=== PATIENT | female | born 1935 | race Asian ===

== ENCOUNTER 2017-07-21 19:32 | Emergency (ER) | payer OTHER ==
--- NOTE | 2017-07-21 19:42 | PDOC ---
Rapid Medical Evaluation Time Seen by Provider: 07/21/17 19:38 Medical Evaluation: 07/21/17 19:40 I have performed a brief in-person evaluation of this patient. The patient presents with a chief complaint of: epigastric pain with n/v x3 since this am Pertinent physical exam findings:Epigastric pain on palp I have ordered the following:cbc/cmp,ua,amylase,lipase The patient will proceed to the ED for further evaluation:
[2017-07-21 19:45] VITALS: BP 138/70; PULSE 66; TEMP 97.9; BMI 27.3
[2017-07-21 20:11] LABS: BASOPHIL 0.5 % (0-2.0); EOSINOPHIL 0.1 % (0-4.5); MCH 29.5 pg (25.7-33.7); MCHC 33.1 g/dl (32.0-36.0); MEAN PLT VOLUME 8.9 fl (7.5-11.1); NEUTROPHILS 86.4 % (42.8-82.8); PLATELET COUNT 263 K/MM3 (134-434); RDW 13.8 % (11.6-15.6); WHITE BLOOD COUNT 13.7 K/mm3 (4.0-10.0)
[2017-07-21 20:11] LABS: URINE APPEARANCE SLCLOUDY; URINE BILIRUBIN NEGATIVE (NEGATIVE); URINE BLOOD 1+ (NEGATIVE); URINE COLOR YELLOW; URINE GLUCOSE (UA) 1+ (NEGATIVE); URINE KETONE NEGATIVE (NEGATIVE); URINE NITRITE NEGATIVE (NEGATIVE); URINE UROBILINOGEN NEGATIVE mg/dL (0.2-1.0)
[2017-07-21 20:15] LABS: URINE PROTEIN 1+ (NEGATIVE)
[2017-07-21 20:34] LABS: URINE BACTERIA RARE /hpf (NONE SEEN); URINE MUCUS RARE; URINE RBC 8 /hpf (0-3); URINE WBC 2 /hpf (3-5)
[2017-07-21] MEDS ORDERED: MAG HYDROX/AL HYDROX/SIMETH 355 ML ORAL.SUSP PO ONE (20:42)
[2017-07-21] MEDS ORDERED: FAMOTIDINE 20 MG/50 ML IVPB 20 MG in PREMIX 50 IVPB ONE (20:42)
--- NOTE | 2017-07-21 20:42 | PDOC ---
History of Present Illness - General History Source: Patient Exam Limitations: Language Barrier - History of Present Illness Initial Comments: 07/22/17 01:52 "Patient is a 81 year old female with no significant medical history who presents to the ED with epigastric pain that began this morning. The patient describes her pain as a non-radiating dull pressure, and adds that it is similar to gas pain. It is associated with two episodes of nausea and vomiting as well as belching and passing gas. She reports the episodes of vomiting to be nonbloody and nonbilious. She denies any diarrhea, bloody stool, or constipation. The patient denies fever, chill, SOB, chest pain, or back pain. pt denies any exertional worsening of sypmtoms. No known cardiac history PCP: Dr. Jesús Meehan " <Carisa Jett - Last Filed: 07/22/17 01:52> - General History Source: Patient Exam Limitations: No Limitations <Mak Ornelas - Last Filed: 07/22/17 03:20> - General Chief Complaint: Nausea/Vomiting Stated Complaint: PAIN, ACUTE Time Seen by Provider: 07/21/17 19:38 Past History <Carisa Jett - Last Filed: 07/22/17 01:52> - Past Medical History COPD: No - Surgical History Neurologic Surgery: Yes (bilat knees) - Suicide/Smoking/Psychosocial Hx Smoking History: Never smoked <Mak Ornelas - Last Filed: 07/22/17 03:20> - Past Medical History Allergies/Adverse Reactions: Allergies Allergy/AdvReac Type Severity Reaction Status Date / Time No Known Allergies Allergy Verified 07/21/17 19:42 Home Medications: Ambulatory Orders NK [No Known Home Medication] 07/21/17 Review of Systems - Review of Systems Able to Perform ROS?: Yes Comments:: 07/22/17 01:53 "CONSTITUTIONAL: No reported: Fever, Chills, Diaphoresis, Generalized Weakness, Malaise, Loss of Appetite HEENT: No reported: Rhinorrhea, Nasal Congestion, Throat Pain, Throat Swelling, Difficulty Swallowing, Mouth Swelling, Ear Pain, Eye Pain, Visual Changes CARDIOVASCULAR: No reported: Chest Pain, Syncope, Palpitations, Irregular Heart Rate, Lightheadedness, Peripheral Edema RESPIRATORY: No reported: Cough, Shortness of Breath, SOB with Exertion, Orthopnea, Wheezing , Stridor, Hemoptysis GASTROINTESTINAL: +Abdominal Pain +Nausea +Vomiting No reported: Abdominal Distension, Diarrhea, Constipation, Melena, Hematochezia GENITOURINARY: No reported: Dysuria, Frequency, Urgency, Hesitancy, Flank Pain, Genital Pain MUSCULOSKELETAL: No reported: Myalgia, Arthralgia, Joint Swelling, Back pain, Neck Pain SKIN: No reported: Rash, Itching, Pallor HEMEATOLOGIC/IMMUNOLOGIC: No reported: Easy Bleeding, Easy Bruising, Lymphadenopathy, Frequent infections ENDOCRINE: No reported: Unexplained Weight Gain, Unexplained Weight Loss, Heat Intolerance , Cold Intolerance NEUROLOGIC: No reported: Headache, Focal Weakness, Paresthesias, Vertigo, Lightheadedness, Unsteady Gait, Seizure, Mental Status Changes, Incontinence PSYCHIATRIC: No reported: Anxiety, Depression " All Other Systems: Reviewed and Negative <Carisa Jett - Last Filed: 07/22/17 01:52> *Physical Exam - Vital Signs Last Vital Signs Temp Pulse Resp BP Pulse Ox 97.9 F 66 18 138/70 97 07/21/17 19:43 07/21/17 19:43 07/21/17 19:43 07/21/17 19:43 07/21/17 19:43 - Physical Exam Comments: 07/22/17 01:53 "GENERAL: The patient is awake, alert, and fully oriented, Nontoxic - in no acute distress. HEAD: Normocephalic, atraumatic. EYES: extraocular movements intact, sclera anicteric, conjunctiva clear. ENT: Normal voice, Moist mucous membranes. NECK: Normal range of motion, supple LUNGS: Breath sounds equal, clear to auscultation bilaterally. No wheezes, no rhonchi, no rales. HEART: Regular rate and rhythm, without murmur, rub or gallop. ABDOMEN: +Mild epigastric tenderness. Soft, normoactive bowel sounds. No guarding, no rebound.No CVA tenderness EXTREMITIES: Normal range of motion, no edema. No clubbing or cyanosis. No cords , erythema, or tenderness. NEUROLOGICAL: No facial assymetry, Normal speech, PSYCH: Normal mood, normal affect. SKIN: Warm, Dry, normal turgor, " <Carisa Jett - Last Filed: 07/22/17 01:52> - Vital Signs Last Vital Signs Temp Pulse Resp BP Pulse Ox 97.9 F 66 18 138/70 97 07/21/17 19:43 07/21/17 19:43 07/21/17 19:43 07/21/17 19:43 07/21/17 19:43 <CeciMak - Last Filed: 07/22/17 03:20> Heart Score/ECG Review - ECG Impressions Comment:: 07/21/17 20:59 Twelve-lead EKG was performed and reviewed by me. There is normal sinus rhythm with a normal rate. rate of 65 no signs of GABE <Ceci,Mak - Last Filed: 07/22/17 03:20> ED Treatment Course - LABORATORY CBC & Chemistry Diagram: 07/21/17 19:50 07/21/17 19:50 - ADDITIONAL ORDERS Additional order review: Laboratory Results 07/21/17 07/21/17 07/21/17 19:55 19:50 19:50 Sodium 139 Potassium 4.1 Chloride 105 Carbon Dioxide 25 Anion Gap 9 BUN 14 Creatinine 0.8 Creat Clearance w eGFR > 60 Random Glucose 153 H Calcium 9.3 Total Bilirubin 0.5 AST 14 L ALT 27 Alkaline Phosphatase 65 Creatine Kinase 61 Troponin I < 0.02 Total Protein 8.2 Albumin 3.8 Total Amylase 46 Lipase 155 Urine Color Yellow Urine Appearance Slcloudy Urine pH 6.0 Ur Specific [place] 1.018 Urine Protein 1+ H Urine Glucose (UA) 1+ H Urine Ketones Negative Urine Blood 1+ H Urine Nitrite Negative Urine Bilirubin Negative Urine Urobilinogen Negative Ur Leukocyte Esterase Negative Urine WBC (Auto) 2 Urine RBC (Auto) 8 Ur Epithelial Cells Rare Urine Bacteria Rare Urine Mucus Rare 07/21/17 19:50 RBC 4.61 MCV 89.0 MCHC 33.1 RDW 13.8 MPV 8.9 Neutrophils % 86.4 H Lymphocytes % 9.5 Monocytes % 3.5 L Eosinophils % 0.1 Basophils % 0.5 - Medications Given in the ED: ED Medications Discontinued Medications Generic Name Dose Route Start Last Admin Trade Name Freq PRN Reason Stop Dose Admin Al Hydroxide/Mg Hydroxide 30 ml 07/21/17 20:42 07/21/17 21:12 Mylanta Suspension - PO 07/21/17 20:43 30 ml ONCE ONE Administration Famotidine/Sodium Chloride 20 50 mls @ 100 mls/hr 07/21/17 20:42 07/21/17 21: 13 mg/ Miscellaneous IVPB 07/21/17 21:11 100 mls/hr ONCE ONE Administration <Carisa Jett - Last Filed: 07/22/17 01:52> - LABORATORY CBC & Chemistry Diagram: 07/21/17 19:50 07/21/17 19:50 - ADDITIONAL ORDERS Additional order review: Laboratory Results 07/21/17 19:55 Urine Color Yellow Urine Appearance Slcloudy Urine pH 6.0 Ur Specific [place] 1.018 Urine Protein 1+ H Urine Glucose (UA) 1+ H Urine Ketones Negative Urine Blood 1+ H Urine Nitrite Negative Urine Bilirubin Negative Urine Urobilinogen Negative Urine WBC (Auto) 2 Urine RBC (Auto) 8 Ur Epithelial Cells Rare Urine Bacteria Rare Urine Mucus Rare <Mak Ornelas - Last Filed: 07/22/17 03:20> Medical Decision Making - Medical Decision Making 07/21/17 20:43 81y F no significant pmhx presents with complaint of epgiastric pressure/gas pain since today - it is constatnt, associtaed with 2 episodes of vomiting, no associated diaphoresis, sob, exertional cp. exam noted for mild epigastric tenderness, otherwise wll appearing differential includes acs, pancreaittis, gerd will giv epepcid/maalox will r/o acs with trops x 2 will reassess A portion of this note was documented by scribe services under my direction. I have reviewed the details of the note, within reason, and agree with the documentation with the following case summary and management plan written by me 07/22/17 02:10 pt feeling improved awaiting 2nd tropnin labs erviewed and are neg thus far will sign out pt to dr. scott to fu with trop if neg will hvae pt fu with dr still as outpatient. suspect symptoms secondary to indigestion/gerd 07/22/17 03:19 trop x 2 neg will dc wit hpmd fu I discussed the physical exam findings, ancillary test results and final diagnoses with the patient. I answered all of the patient's questions. The patient was satisfied with the care received and felt comfortable with the discharge plan and treatment plan. The patient will call their primary care physician within 24 hours to arrange follow-up and will return to the Emergency Department with any new, persistent or worsening symptoms. <Mak Ornelas - Last Filed: 07/22/17 03:20> *DC/Admit/Observation/Transfer - Attestations Scribe Attestion: 07/22/17 01:53 Documentation prepared by Carisa Jett, acting as medical office clerk for Mak Ornelas MD. <Carisa Jett - Last Filed: 07/22/17 01:52> - Discharge Dispostion Admit: No <Mak Ornelas - Last Filed: 07/22/17 03:20> Diagnosis at time of Disposition: Epigastric abdominal pain - Discharge Dispostion Disposition: HOME Condition at time of disposition: Improved - Referrals Referrals: Jesús Meehan MD [Primary Care Provider] - - Patient Instructions Additional Instructions: Return to the emergency department immediately with ANY new, persistent or worsening symptoms, including any pain in your chest, shortness of breath excess especially after you are ambulating or exerting yourself. I suspect that you're symptoms are due to acid reflux please take Maalox and Pepcid as needed. Please do not sleep immediately after eating You MUST call and follow up with Dr. Meehan in 3-4 days for further evaluation of your symptoms. Results were discussed with you. Please make sure your doctor reviews the results of your emergency evaluation. Print Language: POLISH - Post Discharge Activity
[2017-07-21 20:52] LABS: ALBUMIN 3.8 g/dl (3.4-5.0); ALK PHOS 65 U/L (45-117); AMYLASE 46 U/L (25-115); ANION GAP 9 (8-16); BILIRUBIN,TOTAL 0.5 mg/dL (0.2-1.0); CALCIUM 9.3 mg/dL (8.5-10.1); CO2 25 mmol/L (21-32); CREATININE 0.8 mg/dL (0.55-1.02); GLUCOSE,RANDOM 153 mg/dL (74-106); SGOT/AST 14 U/L (15-37); SGPT/ALT 27 U/L (12-78); TOT PROT 8.2 g/dl (6.4-8.2)
[2017-07-21] MEDS ORDERED: MAG HYDROX/AL HYDROX/SIMETH 30 ML UNIT-DOSE CUP ONE (20:54)
[2017-07-21] MEDS ORDERED: FAMOTIDINE 20 MG/50 ML IVPB 20 MG/50 ML MG IVPB ONE (20:54)
[2017-07-21 22:20] LABS: URINE LEUK ESTERASE Negative (NEGATIVE)
[2017-07-22] MEDS ORDERED: ONDANSETRON 4 MG/2 ML VIAL IVPB ONE (00:31)
[2017-07-22] MEDS ORDERED: ONDANSETRON 4 MG/2 ML VIAL ONE (00:38)
[2017-07-22 00:46] LABS: CPK 61 IU/L (26-192)
[2017-07-22 00:47] LABS: TROPONIN I < 0.02 ng/ml (0.00-0.05)
[2017-07-22 03:11] LABS: CPK 53 IU/L (26-192)
[2017-07-22 03:12] LABS: TROPONIN I < 0.02 ng/ml (0.00-0.05)
--- NOTE | 2017-07-24 23:05 | EKG ---
Test Reason : Blood Pressure : / mmHG Vent. Rate : 065 BPM Atrial Rate : 065 BPM P-R Int : 190 ms QRS Dur : 084 ms QT Int : 422 ms P-R-T Axes : 034 -02 066 degrees QTc Int : 438 ms NORMAL SINUS RHYTHM INFERIOR INFARCT , AGE UNDETERMINED ABNORMAL ECG NO PREVIOUS ECGS AVAILABLE Confirmed by IRMA NICKERSON MD ([id number]) on 07/24/2017 11:05:19 PM Referred By: Confirmed By:IRMA NICKERSON MD
== END 2017-07-22 03:43 | disposition home or self-care (01) ==
LOC: JER 19:32
PROC: 3E033GC Introduction of Other Therapeutic Substance into Peripheral Vein, Percutaneous Approach (ICD-10-PCS; principal; 2017-07-21)
DX: R10.13 Epigastric pain (principal)
CPT/HCPCS: 36415; 80053; 81003; 81015; 82150; 82550; 83690; 84484; 85025; 93005; 93010; 96365; 99282-25

== ENCOUNTER 2017-07-27 10:50 | Inpatient (IN) | payer OTHER ==
--- NOTE | 2017-07-27 12:14 | PDOC ---
History of Present Illness - General History Source: Patient Exam Limitations: No Limitations - History of Present Illness Initial Comments: 07/27/17 14:02 The patient is a 81 year old female, with no significant past medical history who presents to the emergency department with upper R sided abdominal pain for 2 -3 days. The patient was here 07/21/17 with c/o of epigastric pain that has since resolved. She notes having the onset of this pain about a couple days after her ER visit. She reports her pain is constant and sharp. She notes having a decrease in her appetite, and notes her pain is often worse after a meal. Last BM yesterday. Patient reports seeing yesterday who adivised she come to the ER if her symptoms persisted. She denies recent fevers, chills, headache or dizziness. She denies recent nausea, vomit, diarrhea. She denies recent dysuria, frequency, urgency or hematuria. She denies recent chest pain or shortness of breath. Allergies: NKA Past surgical history: s/p B TKR Social history: Nonsmoker. Denies EtOH use and recreational drug use. Lives with son (non belarusian speaking). Primary Care Physician: <Preston Colindres - Last Filed: 07/27/17 14:02> <Sonido Rodarte - Last Filed: 07/27/17 15:32> - General Chief Complaint: Pain Stated Complaint: RT SIDE PAIN Time Seen by Provider: 07/27/17 12:14 Past History <Preston Colindres - Last Filed: 07/27/17 14:02> - Past Medical History COPD: No Other medical history: denies - Surgical History Neurologic Surgery: Yes (bilat knees) - Suicide/Smoking/Psychosocial Hx Smoking History: Never smoked Information on smoking cessation initiated: No Hx Alcohol Use: No Drug/Substance Use Hx: No Substance Use Type: None <Sonido Rodarte - Last Filed: 07/27/17 15:32> - Past Medical History Allergies/Adverse Reactions: Allergies Allergy/AdvReac Type Severity Reaction Status Date / Time No Known Allergies Allergy Verified 07/27/17 10:58 Home Medications: Ambulatory Orders NK [No Known Home Medication] 07/21/17 Review of Systems - Review of Systems Able to Perform ROS?: Yes Comments:: 07/27/17 14:03 GENERAL/CONSTITUTIONAL: No fever or chills. No weakness. HEAD, EYES, EARS, NOSE AND THROAT: No change in vision. No ear pain or discharge. No sore throat. GASTROINTESTINAL: +R sided abdominal pain and constipation. No nausea, vomiting, diarrhea. GENITOURINARY: No dysuria, frequency, or change in urination. CARDIOVASCULAR: No chest pain or shortness of breath. RESPIRATORY: NO wheezing, cough or hemoptysis. MUSCULOSKELETAL: No joint or muscle swelling or pain. No neck or back pain. SKIN: No rash NEUROLOGIC: No headache, vertigo, loss of consciousness, or change in strength/ sensation. ENDOCRINE: No increased thirst. No abnormal weight change. HEMATOLOGIC/LYMPHATIC: No anemia, easy bleeding, or history of blood clots. ALLERGIC/IMMUNOLOGIC: No hives or skin allergy. <Preston Colindres - Last Filed: 07/27/17 14:02> *Physical Exam - Vital Signs Last Vital Signs Temp Pulse Resp BP Pulse Ox 97.7 F 82 18 153/70 98 07/27/17 10:56 07/27/17 10:56 07/27/17 10:56 07/27/17 10:56 07/27/17 10:56 - Physical Exam Comments: 07/27/17 14:03 GENERAL: Awake, alert, and fully oriented, in no acute distress HEAD: No signs of trauma EYES: PERRLA, EOMI, sclera anicteric, conjunctiva clear ENT: Auricles normal inspection, hearing grossly normal, nares patent, oropharynx clear without exudates. Moist mucosa NECK: Normal ROM, supple, no lymphadenopathy, JVD, or masses LUNGS: Breath sounds equal, clear to auscultation bilaterally. No wheezes, and no crackles HEART: Regular rate and rhythm, normal S1 and S2, no murmurs, rubs or gallops ABDOMEN: RUQ tenderness to palpation. Soft, normoactive bowel sounds. No guarding, no rebound. No masses EXTREMITIES: Normal range of motion, no edema. No clubbing or cyanosis. No cords , erythema, or tenderness BACK: No midline spinal tenderness in cervical/thoracic/lumbar region NEUROLOGICAL: Normal speech, cranial nerves intact, negative pronator drift, 5/ 5 strength in all 4 extremities, normal sensation to light touch in all 4 extremities, normal cerebellar exam, normal gait, normal reflexes and tone SKIN: Warm, Dry, normal turgor, no rashes or lesions noted. <Preston Colindres - Last Filed: 07/27/17 14:02> - Vital Signs Last Vital Signs Temp Pulse Resp BP Pulse Ox 97.7 F 82 18 153/70 98 07/27/17 10:56 07/27/17 10:56 07/27/17 10:56 07/27/17 10:56 07/27/17 10:56 <CaydenKendrickricardo - Last Filed: 07/27/17 15:32> ED Treatment Course - LABORATORY CBC & Chemistry Diagram: 07/27/17 12:38 07/27/17 12:38 - ADDITIONAL ORDERS Additional order review: Laboratory Results 07/27/17 07/27/17 12:38 12:30 Sodium 138 Potassium 5.1 D Chloride 103 Carbon Dioxide 28 Anion Gap 7 L BUN 13 Creatinine 0.8 Creat Clearance w eGFR > 60 Random Glucose 109 H D Calcium 8.7 Magnesium 2.1 Total Bilirubin 1.0 D AST 40 H D ALT 31 Alkaline Phosphatase 64 Troponin I < 0.02 Total Protein 7.5 Albumin 3.0 L D Lipase 173 Urine Color Talya Urine Appearance Slcloudy Urine pH 5.0 Ur Specific [place] 1.025 Urine Protein Negative Urine Glucose (UA) Negative Urine Ketones Negative Urine Blood 1+ H Urine Nitrite Negative Urine Bilirubin Negative Urine Urobilinogen 2.0 H Urine WBC (Auto) 6 Urine RBC (Auto) 3 Ur Epithelial Cells Few Urine Bacteria Rare Urine Mucus Many 07/27/17 12:38 RBC 4.22 MCV 88.7 MCHC 32.9 RDW 13.6 MPV 8.7 Neutrophils % 59.6 D Lymphocytes % 23.8 D Monocytes % 10.5 H D Eosinophils % 5.1 H D Basophils % 1.0 - Medications Given in the ED: ED Medications Discontinued Medications Generic Name Dose Route Start Last Admin Trade Name Freq PRN Reason Stop Dose Admin Famotidine/Sodium Chloride 20 mg in 50 mls @ 100 mls/hr 07/27/17 12:30 12:54 Pepcid 20 Mg Premixed Ivpb - IVPB 07/27/17 12:59 100 mls/hr ONCE ONE Administration Sodium Chloride 1,000 ml 07/27/17 12:30 07/27/17 13:45 Normal Saline - IV 07/27/17 12:31 1,000 ml ONCE ONE Administration <Preston Colindres - Last Filed: 07/27/17 14:02> - LABORATORY CBC & Chemistry Diagram: 07/27/17 12:38 07/27/17 12:38 <Sonido Rodarte - Last Filed: 07/27/17 15:32> Medical Decision Making - Medical Decision Making 07/27/17 15:28 81-year-old female with no significant past medical history presents with right upper quadrant pain. Blood pressure is mildly elevated to 153 systolic, otherwise vitals are unremarkable. On exam the patient has a positive Perez's sign. Ultrasound with multiple stones and trace cholecystic fluid consistent with acute cholecystitis. AST is 40 otherwise LFTs and lipase are within normal limits. has been consulted and will likely take the patient to the OR however given the patient's age she will need medical clearance. Case has been discussed with /Jhonny who will admit the patient. Case discussed in detail with admitting physician including history, physical exam and ancillary studies. Admitting physician has assumed care for the patient, will follow all pending diagnostics and will complete the evaluation and treatment. <Sonido Rodarte - Last Filed: 07/27/17 15:32> *DC/Admit/Observation/Transfer - Attestations Scribe Attestion: 07/27/17 14:03 Documentation prepared by Preston Colindres, acting as medical surgery nurse for Sonido Rodarte MD. <Preston Colindres - Last Filed: 07/27/17 14:02> - Discharge Dispostion Admit: Yes - Attestations Physician Attestion: 07/27/17 15:32 I, Dr. Sonido Rodarte MD, attest that this document has been prepared under my direction and personally reviewed by me in its entirety. I further attest, that it accurately reflects all work, treatment, procedures and medical decision -making performed by me. <Sonido Rodarte - Last Filed: 07/27/17 15:32> Diagnosis at time of Disposition: Acute cholecystitis - Discharge Dispostion Condition at time of disposition: Stable - Referrals Referrals: Jesús Meehan MD [Primary Care Provider] - - Patient Instructions - Post Discharge Activity
[2017-07-27] MEDS ORDERED: SODIUM CHLORIDE 0.9% 500 ML INFUS.BAG IV ONE (12:30)
[2017-07-27] MEDS ORDERED: FAMOTIDINE 20 MG/50 ML IVPB 20 MG/50 ML MG IVPB ONE ×2 (12:30→12:47)
[2017-07-27 12:54] LABS: EOSINOPHIL 5.1 % (0-4.5); MCH 29.2 pg (25.7-33.7); MCHC 32.9 g/dl (32.0-36.0); MEAN CELL VOLUME 88.7 fl (80-96); MEAN PLT VOLUME 8.7 fl (7.5-11.1); NEUTROPHILS 59.6 % (42.8-82.8); PLATELET COUNT 285 K/MM3 (134-434); RDW 13.6 % (11.6-15.6); WHITE BLOOD COUNT 10.3 K/mm3 (4.0-10.0)
[2017-07-27 13:00] LABS: URINE APPEARANCE SLCLOUDY; URINE BILIRUBIN NEGATIVE (NEGATIVE); URINE BLOOD 1+ (NEGATIVE); URINE COLOR AMBER; URINE GLUCOSE (UA) NEGATIVE (NEGATIVE); URINE KETONE NEGATIVE (NEGATIVE); URINE NITRITE NEGATIVE (NEGATIVE); URINE PROTEIN NEGATIVE (NEGATIVE)
[2017-07-27 13:05] LABS: ANION GAP 7 (8-16); CALCIUM 8.7 mg/dL (8.5-10.1); CO2 28 mmol/L (21-32); CREATININE 0.8 mg/dL (0.55-1.02); GLUCOSE,RANDOM 109 mg/dL (74-106); SGPT/ALT 31 U/L (12-78)
[2017-07-27 13:08] LABS: ALK PHOS 64 U/L (45-117); TOT PROT 7.5 g/dl (6.4-8.2); TROPONIN I < 0.02 ng/ml (0.00-0.05)
[2017-07-27 13:11] LABS: MAGNESIUM 2.1 mg/dL (1.8-2.4); SGOT/AST 40 U/L (15-37)
[2017-07-27 13:42] LABS: URINE BACTERIA RARE /hpf (NONE SEEN); URINE MUCUS MANY; URINE RBC 3 /hpf (0-3); URINE WBC 6 /hpf (3-5)
--- NOTE | 2017-07-27 16:17 | HP ---
CHIEF COMPLAINT: RUQ pain worse w/ food PCP: Dr. Pop HISTORY OF PRESENT ILLNESS: (pt non-czech speaking, son at bedside translating ) 81 yo woman with no significant pmh who presented to ED at behest of her PCP, Dr. Pop, due to 6 days of persistent RUQ pain worsened with PO feeding. Pt states that RUQ pain began the morning after Thanksgiving, when she noted intermittent RUQ pain w/ no radiation, worsened after eating. She took two tylenol, but was subsequently vomited up the medication, with persistent N/V afterward, leading her to come into the ED at [facility] on the evening of 07/21. This visit was notable for WBC of 13.7, normal LFTs/lipase/amylase, trops neg x2. She was sent home for presumptive indigestion/gas pain and instructed to f/ u with pcp. Over the next few days, RUQ pain persisted, continually worsened by foods and pt endorses decreased appetite/PO intake. Two days prior to admission , pain became more constant, prompting pt to visit her PCP yesterday, who urged her to come to the ED for further work-up. She denies any FLORES/dizziness, fever/ chills, cough/SOB, CP/palpitations, persistent N/V, diarrhea/constipation, dysuria or new rashes. Pt states BM have been unchanged, denying change in stool color or melena/hematochezia and endorses any further episodes of emesis or any hematemesis. She endorses mild bloating. Pt is nonpositional, nonradiating. Pt with no recent colonoscopy. Denies any travel, NSAID use. ER course was notable for: (1) WBC 10.3, Temp 97.7 (2) T bili 1.0, Alk phos 64 (3) CXR normal, RUQ notable for multiple stones, pericholecystic fluid Recent Travel: No travel PAST MEDICAL HISTORY: None PAST SURGICAL HISTORY: BL TKR Social History: Smoking: No Alcohol: No Drugs: No Family History: noncontributory Allergies No Known Allergies Allergy (Verified 07/27/17 10:58) HOME MEDICATIONS: Home Medications Medication Instructions Recorded NK [No Known Home Medication] 07/21/17 REVIEW OF SYSTEMS CONSTITUTIONAL: loss of appetite Absent: fever, chills, diaphoresis, generalized weakness, malaise, HEENT: Absent: rhinorrhea, nasal congestion, throat pain, throat swelling, difficulty swallowing CARDIOVASCULAR: Absent: chest pain, syncope, palpitations, irregular heart rate, lightheadedness , peripheral edema RESPIRATORY: Absent: cough, shortness of breath, dyspnea with exertion GASTROINTESTINAL: abdominal pain, abdominal distension, vomiting, Absent: nausea, diarrhea, constipation, melena, hematochezia GENITOURINARY: Absent: dysuria, frequency, urgency, hesitancy, hematuria, MUSCULOSKELETAL: Absent: myalgia, arthralgia, joint swelling, back pain, neck pain SKIN: Absent: rash, itching, pallor NEUROLOGIC: Absent: headache, focal weakness or paresthesias, dizziness, unsteady gait, seizure, . PHYSICAL EXAMINATION Vital Signs - 24 hr 07/27/17 10:56 Temperature 97.7 F Pulse Rate 82 Respiratory 18 Rate Blood Pressure 153/70 O2 Sat by Pulse 98 Oximetry (%) GENERAL: Awake, alert, and fully oriented, in no acute distress. Non-czech speaking HEAD: Normal with no signs of trauma. EYES: Pupils equal, round and reactive to light, extraocular movements intact, sclera anicteric, conjunctiva clear. No lid lag. EARS, NOSE, THROAT: Ears normal, nares patent, oropharynx clear without exudates. Moist mucous membranes. NECK: Normal range of motion, supple without lymphadenopathy, JVD, or masses. LUNGS: Breath sounds equal, clear to auscultation bilaterally. No wheezes, and no crackles. No accessory muscle use. HEART: Regular rate and rhythm, normal S1 and S2 without murmur, rub or gallop. ABDOMEN: Globular with increased tone. Hyperactive, low pitch bowel sounds. Tender to palpation on R side, most intense on R upper quadrant. Mild voluntary guarding with palpation. No pain on palpation of LUQ and LLQ. No splenomegaly. + Perez's. Negative for rebound tenderness. MUSCULOSKELETAL: Normal range of motion at all joints. No bony deformities or tenderness. No CVA tenderness. UPPER EXTREMITIES: 2+ pulses, warm, well-perfused. No cyanosis. No clubbing. No peripheral edema. LOWER EXTREMITIES: 2+ PT BL, 2+ DP on L side, 1+ DP on R. No calf tenderness. Trace peripheral edema, more on R side. NEUROLOGICAL: Cranial nerves II-XII intact. Normal speech. Gait not evaluated. PSYCHIATRIC: Cooperative. Good eye contact. Appropriate mood and affect. SKIN: Warm, dry, normal turgor, no rashes or lesions noted, normal capillary refill. Laboratory Results - last 24 hr CBC, BMP 07/27/17 17:45 07/27/17 17:28 07/27/17 07/27/17 07/27/17 12:30 12:38 12:38 WBC 10.3 H RBC 4.22 Hgb 12.3 Hct 37.4 MCV 88.7 MCH 29.2 MCHC 32.9 RDW 13.6 Plt Count 285 MPV 8.7 Neutrophils % 59.6 D Lymphocytes % 23.8 D Monocytes % 10.5 H D Eosinophils % 5.1 H D Basophils % 1.0 Sodium 138 Potassium 5.1 D Chloride 103 Carbon Dioxide 28 Anion Gap 7 L BUN 13 Creatinine 0.8 Creat Clearance w eGFR > 60 Random Glucose 109 H D Calcium 8.7 Magnesium 2.1 Total Bilirubin 1.0 D AST 40 H D ALT 31 Alkaline Phosphatase 64 Troponin I < 0.02 Total Protein 7.5 Albumin 3.0 L D Lipase 173 Urine Color Talya Urine Appearance Slcloudy Urine pH 5.0 Ur Specific [place] 1.025 Urine Protein Negative Urine Glucose (UA) Negative Urine Ketones Negative Urine Blood 1+ H Urine Nitrite Negative Urine Bilirubin Negative Urine Urobilinogen 2.0 H Urine WBC (Auto) 6 Urine RBC (Auto) 3 Ur Epithelial Cells Few Urine Bacteria Rare Urine Mucus Many Pending urine cx CXR 07/27 - No acute pathology RUQ U/S 07/27 - Fatty liver versus hepatocellular Multiple gallstones with a trace of pericholecystic free fluid. Trans Router reported positive Perez's sign. Correlate clinically to determine further evaluation and to rule out acute cholecystitis. Unremarkable examination ASSESSMENT/PLAN: 81 year old woman with no significant pmh presenting with persistent colicky RUQ pain, worsened by food, now found with U/S confirmed gallstones and findings consistent with cholecystitis. #Acute cholecystitis/biliary colic - US w/ multiple gallstones, sonographic perez's, pericholecystic fluid. - NPO - Surgery consulted - Morphine 2mg IV q4h prn for pain control - Type and screen, coags - Rocephin 1g IV daily, flagyl 500 q8h for cholecystitis coverage - AM CBC, BMP. Trend LFTs - Trend WBC, fever curve - Pt low clinical risk for lap cholecystectomy (intermediate risk), with no cardio-pulmonary comorbidities such as CHF, structural heart dz, arrhythmias, pulmonary dz, known valvular dz. Pt independent in all ADLs with no noted exercise intolerant inconsistent with her age. #LE Edema (r/o dvt) - asymmetric LE edema on R leg, decrease DP pulse - f/u LE duplex #Hyperglycemia - elevated BS 153 on prior admission - f/u A1c #PPX - SubQ Heparin. Hold at midnight - Famotidine IV BID FEN Fluids: 2d5NS 83 cc/hr Electrolytes: Borderline hypoK. Repeat BMP in AM Nutrition: NPO Full Code Dispo: Admit to Med-surg for further management and possible lap cholecystectomy. Plan discussed with attending, Dr. oJdy Augustin, PGY1 Visit type - Emergency Visit Emergency Visit: Yes ED Registration Date: 07/27/17 Care time: The patient presented to the Emergency Department on the above date and was hospitalized for further evaluation of their emergent condition. - New Patient This patient is new to me today: Yes Date on this admission: 07/27/17 - Critical Care Critical Care patient: No
[2017-07-27 16:34] LABS: INR 1.12 (0.82-1.09); PROTHROMBIN TIME (PATIENT) 12.6 SEC (9.98-11.88)
[2017-07-27 16:38] LABS: ACTIVATED PTT 29.4 SECONDS (26.9-34.4)
--- NOTE | 2017-07-27 16:46 | HP ---
Admitting History and Physical - Primary Care Physician PCP: Jesús Meehan - Admission Chief Complaint: RUQ abdominal pain History of Present Illness: Patient is an 81 year old female with no PMHx who was brought in by her son for abdominal pain that initially started a day after Thanksgiving. Patients son reports patient was in her normal state of health when all of a sudden she started having non-radiating and dull RUQ abdominal pain. Patient reports the pain was initially intermittent occurring after she eats heavy food, which made her change her diet to more soft food. Then in the last two days patient reports having constant RUQ abdominal associate with bloating and anorexia, which prompted this hospital visit. Patient's son reports she came here 6 days ago for abdominal pain but was discharged after resolution of symptoms. Patient reports taking Tylenol for the pain but with minimal symptomatic relief. Patient's son denies any history of colonoscopy. Denies any chronic NSAID use. Patient otherwise denies fever, chills, chest pain, palpitations, shortness of breath, loss of consciousness, headaches, constipation, dysuria, hematuria, bloody stools. History Source: Patient, Family Member Limitations to Obtaining History: Language Barrier - Past Surgical History Past Surgical History: Yes: Joint Replacement (Right and Left Knee replacement ( 2015 and 2016)) - Smoking History Smoking history: Never smoked Have you smoked in the past 12 months: No - Alcohol/Substance Use Hx Alcohol Use: No History of Substance Use: reports: None - Social History Usual Living Arrangement: Yes: With Child History of Recent Travel: No Home Medications - Allergies Allergies/Adverse Reactions: Allergies Allergy/AdvReac Type Severity Reaction Status Date / Time No Known Allergies Allergy Verified 07/27/17 10:58 - Home Medications Home Medications: Ambulatory Orders NK [No Known Home Medication] 07/21/17 Physical Examination Vital Signs: Vital Signs Temperature 97.7 F 07/27/17 10:56 Pulse Rate 82 07/27/17 10:56 Respiratory Rate 18 07/27/17 10:56 Blood Pressure 153/70 07/27/17 10:56 O2 Sat by Pulse Oximetry (%) 98 07/27/17 10:56 Constitutional: Yes: Well Nourished, No Distress, Calm Eyes: Yes: WNL, Conjunctiva Clear, EOM Intact, PERRL. No: Ptosis, Sclera Icterus, Tearing HENT: Yes: WNL, Atraumatic, Normocephalic, Other (Dry mucous membranes). No: Nasal Congestion, Pharyngeal Erythema, Rhinnorhea Cardiovascular: Yes: WNL, Regular Rate and Rhythm Respiratory: Yes: WNL, Regular, CTA Bilaterally. No: Accessory Muscle Use, Cough, Diminished, Dullness, Rales, Rhonchi, Wheezes Gastrointestinal: Yes: Soft, Hyperactive Bowel Sounds, Tenderness (upon palpation of RUQ), Other (distended, (+) perez's sign) Musculoskeletal: Yes: WNL. No: Back Pain, Joint Stiffness Extremities: Yes: Other (Incision scars of bilateral knees Tenderness upon palpation of right anterior browne (-) Opal's sign No erythema or warmth or calf tenderness) Edema: Yes Edema: RLE: Trace Peripheral Pulses WNL: No Peripheral Pulses: Left Doralis Pedis: 2+, Right Dorsalis Pedis: 1+, Left Femoral: 2+, Right Femoral: 2+ Integumentary: Yes: WNL. No: Bruising, Erythema, Petechiae, Rash Neurological: Yes: WNL, Alert, Oriented, Cran Nerves II-XII Intact. No: Aphasia , Confusion, Dysarthria, Facial Droop, Lethargy, Numbness, Paresthesia, Seizure , Tingling, Tremors, Unresponsive ...Motor Strength: WNL Psychiatric: Yes: WNL, Alert, Oriented Labs: CBC, BMP 07/27/17 12:38 07/27/17 12:38 Imaging - Results Chest X-ray: Report Reviewed, Image Reviewed (No acute pathology.) Ultrasound: Report Reviewed, Image Reviewed ((+) Sonographic perez's sign. Multiple Gallstones with a trace of pericholecystic free fluid) Assessment/Plan Patient is an 81 year old female who presents with RUQ abdominal pain and Ultrasound of the Gallbladder revealed Cholelithiasis with Pericholecystic free fluid. Patient admitted for further monitoring and management. Acute Cholecystitis VS. Biliary Colic -U/S revealed (+) Perez's sign with Pericholecystic free fluid but NO wall thickening >4mm. Patient meets 2/3 acute cholecystitis diagnostic criteria. -Patient has slightly elevated AST of 40 from 6 days ago, which was 14. U/S revealed no dilatation of the bile ducts. Will repeat CMP. -Will begin antibiotics with Ceftriaxone and Metronidazole for gallbladder penetration -Surgery consult placed and will evaluate for possible procedure tomorrow -NPO for possible procedure tomorrow -IV 1/2NS with D5 @83mls/hr -Morphine 2mg IVP Q4H PRN -Type and screen, PT/PTT ordered -A1C -Risk Stratification:This patient has a low clinical risk for perisurgical cardiac event for this intermediate risk procedure. Patient has no history of arrythmias, dyspnea, syncope. Right Lower Extremity Edema -Trace pitting edema with minor tenderness upon palpation of anterior browne. -Duplex to rule out DVT F/E/N -IV 1/2NS with D5 @83mls/hr -Electrolyes wnl -NPO Prophylaxis -Moderate risk. Heparin 5000 units SQ for DVT -No GI required Disposition -Full code -Will likely have laprascopic procedure tomorrow. Will remain inpatient Full H&P to follow. Discussed case with Attending, Dr. Vera. Sobeida Deshpande MD- PGY2 Visit type - Emergency Visit Emergency Visit: Yes ED Registration Date: 07/27/17 Care time: The patient presented to the Emergency Department on the above date and was hospitalized for further evaluation of their emergent condition. - New Patient This patient is new to me today: Yes Date on this admission: 07/27/17 - Critical Care Critical Care patient: No
[2017-07-27 17:39] LABS: URINE LEUK ESTERASE Negative (NEGATIVE)
[2017-07-27 17:55] LABS: BASOPHIL 0.8 % (0-2.0); EOSINOPHIL 5.5 % (0-4.5); MCH 29.8 pg (25.7-33.7); MCHC 33.8 g/dl (32.0-36.0); MEAN CELL VOLUME 88.2 fl (80-96); MEAN PLT VOLUME 8.7 fl (7.5-11.1); NEUTROPHILS 55.5 % (42.8-82.8); PLATELET COUNT 277 K/MM3 (134-434); RDW 13.5 % (11.6-15.6); WHITE BLOOD COUNT 9.7 K/mm3 (4.0-10.0)
[2017-07-27] MEDS ORDERED: morphine SULFATE 4 MG/ML VIAL IVPUSH PRN (17:57)
[2017-07-27 17:58] LABS: ALBUMIN 3.1 g/dl (3.4-5.0); ALK PHOS 66 U/L (45-117); ANION GAP 8 (8-16); BILIRUBIN,TOTAL 0.7 mg/dL (0.2-1.0); CALCIUM 8.3 mg/dL (8.5-10.1); CO2 27 mmol/L (21-32); CREATININE 0.7 mg/dL (0.55-1.02); GLUCOSE,RANDOM 91 mg/dL (74-106); SGOT/AST 19 U/L (15-37); SGPT/ALT 29 U/L (12-78)
[2017-07-27] MEDS ORDERED: CEFTRIAXONE 1 GM in DEXTROSE 5%-WATER - 50 ML IVPB SCH (18:00)
[2017-07-27] MEDS ORDERED: FAMOTIDINE IV 20 MG/12 ML VIAL IVPUSH SCH (18:15)
[2017-07-27] MEDS ORDERED: DEXTROSE 5%-0.45% SALINE 1,000 ML IV SCH (18:15)
[2017-07-27] MEDS ORDERED: SODIUM CHLORIDE 1,000 ML IV SCH (18:15)
--- NOTE | 2017-07-27 18:26 | CONSULT ---
Consult Consult Specialty:: General Surgery Referred by:: Sonido Rodarte Reason for Consultation:: possible cholecystitis - History of Present Illness Chief Complaint: RUQ pain, n/v, anorexia History of Present Illness: Pt seen and examined in ER. Phone tassel snipper for Erica used #[phone] after son assisted with some translation at bedside. 81yo [place] F with no sig PMH s/p cataract surgery and bilateral knee replacements within last 2 years, began having RUQ pain just after Thanksgiving , associated with n/v x a few episodes Monday morning, anorexia with little po intake since then, and almost none in last couple days, no diarrhea or constipation, last normal/soft BM was yesterday morning, no fever/chills, no recent illness, no previous similar pain. Per medical note, pt has never had colonoscopy. She was seen in ER several days ago for abdominal pain, but discharged when pain resolved with antacid and fluids. WBC then was 13.7. Today she is afebrile, wbc initially 10.7 repeated at 9, LFTs and lipase normal though initial AST was 40 (slightly hemolyzed). She takes occasional Tylenol or ibuprofen for pain as needed, but Tylenol did not help this pain. Her son indicates that the pain was worse with "heavy/hard food" like spicy [place] dishes, but better with "soft food" like bread. She has almost been afraid to eat much because of the pain. She saw her PMD Dr. Meehan yesterday, who advised her to go to ER if pain persisted or got worse. She came today. Tolerated CT oral contrast in ER, but did not have CT. She is admitted to hospitalist. Surgery is consulted for possible need for cholecystectomy. - History Source History Provided By: Patient, Family Member (son at bedside), Medical Record Limitations to Obtaining History: Language Barrier (Erica, telephone tassel snipper #[phone]) - Past Medical History Reproductive: Yes: Postmenopausal ...: No Musculoskeletal: Yes: Osteoarthritis - Past Surgical History Past Surgical History: Yes: Cataract Removal (bilateral, years ago), Joint Replacement (Right and Left Knee replacement (02/2016 and 12/2014)). No: Colonoscopy - Alcohol/Substance Use Hx Alcohol Use: No History of Substance Use: reports: None - Smoking History Smoking history: Never smoked Have you smoked in the past 12 months: No - Social History Usual Living Arrangement: With Child History of Recent Travel: No Home Medications - Allergies Allergies/Adverse Reactions: Allergies Allergy/AdvReac Type Severity Reaction Status Date / Time No Known Allergies Allergy Verified 07/27/17 10:58 - Home Medications Home Medications: Ambulatory Orders NK [No Known Home Medication] 07/21/17 Family Disease History - Family Disease History Family History: Unremarkable Review of Systems - Review of Systems Constitutional: reports: Loss of Appetite. denies: Chills, Fever Eyes: denies: Blurred Vision, Recent Change in Vision HENT: denies: Difficult Swallowing, Hearing Loss, Nasal Congestion, Throat Pain Neck: denies: Swollen Glands, Tenderness Cardiovascular: denies: Chest Pain, Palpitations Respiratory: denies: Cough, SOB Gastrointestinal: reports: Abdominal Pain (with hpi), Nausea (with hpi, Monday only), Vomiting (with hpi, Monday only). denies: Constipation, Diarrhea Genitourinary: denies: Burning, Dysuria Musculoskeletal: denies: Back Pain, Joint Pain, Muscle Pain Integumentary: denies: Change in Color, Rash Neurological: denies: Dizziness, Headache, Unsteady Gait Psychiatric: denies: Anxiety, Depression Physical Exam Vital Signs: Vital Signs Temperature 97.7 F 07/27/17 10:56 Pulse Rate 76 07/27/17 17:38 Respiratory Rate 18 07/27/17 17:38 Blood Pressure 132/84 07/27/17 17:38 O2 Sat by Pulse Oximetry (%) 98 07/27/17 17:38 Constitutional: Yes: Well Nourished, No Distress, Calm Eyes: Yes: Conjunctiva Clear, EOM Intact. No: Sclera Icterus HENT: Yes: Atraumatic, Normocephalic Neck: Yes: Supple, Trachea Midline Cardiovascular: Yes: Regular Rate and Rhythm. No: Murmur Respiratory: Yes: Regular, CTA Bilaterally Gastrointestinal: Yes: Normal Bowel Sounds, Soft, Abdomen, Obese (protuberant), Distention (mild), Tenderness (RUQ without rebound or guarding). No: Tenderness , Epigastrium, Tenderness, Rebound ...Rectal Exam: Yes: Deferred Renal/: No: CVA Tenderness - Left, CVA Tenderness - Right Musculoskeletal: No: Back Pain (no direct tenderness), Joint Stiffness, Joint Swelling Extremities: Yes: Other (bilateral knee scars). No: Cool, Cyanosis Edema: No Peripheral Pulses WNL: Yes Integumentary: No: Jaundice, Rash Neurological: Yes: Alert, Oriented Psychiatric: Yes: Alert, Oriented Labs: CBC, BMP 07/27/17 17:45 07/27/17 17:28 CMP Sodium 137 mmol/L (136-145) 07/27/17 17:28 Potassium 3.6 mmol/L (3.5-5.1) D 07/27/17 17:28 Chloride 102 mmol/L (98-107) 07/27/17 17:28 Carbon Dioxide 27 mmol/L (21-32) 07/27/17 17:28 Anion Gap 8 (8-16) 07/27/17 17:28 BUN 12 mg/dL (7-18) 07/27/17 17:28 Creatinine 0.7 mg/dL (0.55-1.02) 07/27/17 17:28 Creat Clearance w eGFR > 60 (>60) 07/27/17 17:28 Random Glucose 91 mg/dL (74-106) 07/27/17 17:28 Calcium 8.3 mg/dL (8.5-10.1) L 07/27/17 17:28 Magnesium 2.1 mg/dL (1.8-2.4) 07/27/17 12:38 Total Bilirubin 0.7 mg/dL (0.2-1.0) D 07/27/17 17:28 AST 19 U/L (15-37) D 07/27/17 17:28 ALT 29 U/L (12-78) 07/27/17 17:28 Alkaline Phosphatase 66 U/L (45-117) 07/27/17 17:28 Troponin I < 0.02 ng/ml (0.00-0.05) 07/27/17 12:38 Total Protein 7.0 g/dl (6.4-8.2) 07/27/17 17:28 Albumin 3.1 g/dl (3.4-5.0) L 07/27/17 17:28 Lipase 173 U/L (73-393) 07/27/17 12:38 Abnormal Lab Results 07/27/17 07/27/17 07/27/17 12:30 12:38 12:38 WBC 10.3 H Monocytes % 10.5 H D Eosinophils % 5.1 H D PT with INR Anion Gap 7 L Random Glucose 109 H D Calcium AST 40 H D Albumin 3.0 L D Urine Blood 1+ H Urine Urobilinogen 2.0 H 07/27/17 07/27/17 07/27/17 16:05 17:28 17:45 WBC Monocytes % 10.6 H Eosinophils % 5.5 H PT with INR 12.60 H Anion Gap Random Glucose Calcium 8.3 L AST Albumin 3.1 L Urine Blood Urine Urobilinogen Urine Test Results Urine Color Talya 07/27/17 12:30 Urine Appearance Slcloudy 07/27/17 12:30 Urine pH 5.0 (5.0-8.0) 07/27/17 12:30 Ur Specific [place] 1.025 (1.001-1.035) 07/27/17 12:30 Urine Protein Negative (NEGATIVE) 07/27/17 12:30 Urine Glucose (UA) Negative (NEGATIVE) 07/27/17 12:30 Urine Ketones Negative (NEGATIVE) 07/27/17 12:30 Urine Blood 1+ (NEGATIVE) H 07/27/17 12:30 Urine Nitrite Negative (NEGATIVE) 07/27/17 12:30 Urine Bilirubin Negative (NEGATIVE) 07/27/17 12:30 Ur Leukocyte Esterase Negative (NEGATIVE) 07/27/17 12:30 Ur Epithelial Cells Few /HPF (FEW) 07/27/17 12:30 Urine Bacteria Rare /hpf (NONE SEEN) 07/27/17 12:30 Urine Mucus Many 07/27/17 12:30 Imaging - Results Chest X-ray: Report Reviewed Ultrasound: Report Reviewed (multiple gallstones without thickened wall, gb ~ 10cm, trace pericholecystic fluid, no cbd dilation, + Perez's), Image Reviewed EKG: Report Reviewed, Image Reviewed Problem List - Problems (1) Calculus of gallbladder with acute and chronic cholecystitis without obstruction Assessment/Plan: Admitted to hospitalist NPO/IVF trend labs - repeats ok but with clinical symptoms and ultrasound findings, will treat as acute on chronic cholecystitis IV antibiotics DVT prophylaxis plan alternating tylenol/ibuprofen prn for pain postop, narcotic for breakthrough only Discussed with patient via phone tassel snipper risks, benefits and alternatives of laparoscopic possible open cholecystectomy, including but not limited to bleeding, infection, injury to adjacent structures, bile duct leak or injury, intraabdominal abscess, need for further procedures; alternatives include antibiotics, delayed or no surgery - risks of this include recurrence of biliary colic, cholecystitis, cholangitis, pancreatitis. Patient desires to proceed with operation - will take to OR tomorrow for above. Informed consent signed for same. Code(s): K80.12 - CALCULUS OF GB W ACUTE AND CHRONIC CHOLECYST W/O OBSTRUCTION (2) Osteoarthritis of both knees Code(s): M17.0 - BILATERAL PRIMARY OSTEOARTHRITIS OF KNEE Qualifiers: Osteoarthritis type: primary Qualified Code(s): M17.0 - Bilateral primary osteoarthritis of knee
--- NOTE | 2017-07-27 18:33 | PN ---
Teaching Attending Note Name of Resident: Torey Augustin ATTENDING PHYSICIAN STATEMENT I saw and evaluated the patient. I reviewed the resident's note and discussed the case with the resident. I agree with the resident's findings and plan as documented. SUBJECTIVE: CC: RUQ abd pain HPI: 81 y/o lady with h/o TKA who presented with abd pain x 5 days . after thanksgiving dinner she developed RUQ abd pain. it was intermittent in first 2- 3 days, then became constant. denies N/V. no diarrhea . no fever . she presented to ER on 07/22 and her sx improved on tylenol then was d/c home . she reports poor po intake . now she is in ER. her sx are better , no abd pain but she had pain when resident examined her US of abd showed gall stones with pericystic fluid OBJECTIVE: NAD, Awake , alert and oriented HEENT: mildly dry MM. No LAP in neck. round equal pupils , reactive to light , EOMI. no facial droop. CV: RRR. no MRG Lungs: CTAB Abd: soft, ND, NL BS . TTP in RUQ with positive Perez's , liver is not palpated or percussed . no rebound tenderness or guarding . Ext: no erythema. Circumference of R leg ? slightly > L . with tenderness on R browne. ASSESSMENT AND PLAN: 81 y/o lady with h/o TKA who presented with abd pain x 5 days. 1- ABd pain. clinically and with US results this indicates Acute cholecystitis. - d/w her and her son the need for surgery , but now pt is hesitant. risk of worsening infection/ sepsis and even was explained . - Start IV abx . ceftriaxon and flagyl - Start IVF - NPO . - morphine for pain. - Pre-OP risk stratification: this is an intermediate risk non emergent procedure. the pateitn her self has no signs or sx of arrhythmias, decompensated heart failure, CP or ACS. she has no h/o POP or eertional cp. she has no h/o CAD , CHF, or any cardiac problems . 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 in conclusion she is at low risk for ursula -surgical cardiac events for this intermediate risk procedure. No cardiac work up is indicated at this time. But will get US of LE to R/o DVT as she has tenderness in R leg. if there is DT then she will need IVC filter before going for surgery . 2- DVT PX . heparin. hold after MN HLOC
[2017-07-27] MEDS ORDERED: DEXTROSE 5%-0.45% SALINE 990 ML with POTASSIUM CHLORIDE 20 MEQ IVPB SCH (19:00)
[2017-07-27] MEDS ORDERED: METRONIDAZOLE 500 MG PREMIXED 500 MG/100 ML MG IVPB ONE (19:20)
[2017-07-27] MEDS ORDERED: CEFTRIAXONE 1 GM/50 ML BAG ONE (19:20)
[2017-07-27] MEDS: METRONIDAZOLE 500 MG PREMIXED 500 MG/100 ML MG IVPB SCH (21:34)
[2017-07-27] MEDS: HEPARIN NA (PORCINE) 5,000 UNITS/ML 1ML VIAL SQ SCH (21:41)
[2017-07-28 00:16] VITALS: BMI 27.1
[2017-07-28] MEDS: FAMOTIDINE IV 20 MG/12 ML VIAL IVPUSH SCH ×3 (00:46→22:47)
[2017-07-28] MEDS: METRONIDAZOLE 500 MG PREMIXED 500 MG/100 ML MG IVPB SCH ×2 (01:32→10:32)
[2017-07-28] MEDS: HEPARIN NA (PORCINE) 5,000 UNITS/ML 1ML VIAL SQ SCH ×3 (01:34→22:47)
[2017-07-28 08:07] LABS: BASOPHIL 0.9 % (0-2.0); EOSINOPHIL 5.8 % (0-4.5); MCH 29.5 pg (25.7-33.7); MCHC 33.5 g/dl (32.0-36.0); MEAN CELL VOLUME 87.9 fl (80-96); MEAN PLT VOLUME 8.5 fl (7.5-11.1); NEUTROPHILS 63.2 % (42.8-82.8); PLATELET COUNT 264 K/MM3 (134-434); WHITE BLOOD COUNT 9.3 K/mm3 (4.0-10.0)
[2017-07-28] MEDS ORDERED: CEFTRIAXONE 1 G/50 ML PREMIX 50 ML IVPB SCH (08:12)
[2017-07-28 08:21] LABS: ALBUMIN 2.7 g/dl (3.4-5.0); ANION GAP 6 (8-16); CALCIUM 7.6 mg/dL (8.5-10.1); CO2 26 mmol/L (21-32); GLUCOSE,RANDOM 131 mg/dL (74-106)
[2017-07-28 08:24] LABS: ALK PHOS 56 U/L (45-117); BILIRUBIN,TOTAL 0.5 mg/dL (0.2-1.0); CREATININE 0.6 mg/dL (0.55-1.02); PHOSPHOROUS 2.3 mg/dL (2.5-4.9); SGOT/AST 15 U/L (15-37); SGPT/ALT 25 U/L (12-78); TOT PROT 6.1 g/dl (6.4-8.2)
--- NOTE | 2017-07-28 08:50 | PN ---
Physical Exam: SUBJECTIVE: Patient seen and examined by me this AM - Spoke to pt. Nursing able to translate in [place]. Pt endorses improved RUQ pain. NPO. - 3x episodes of diarrhea overnight. No hematochezia, melena. No fevers/chills, SOB/cough, FLORES/dizziness, N/V, abdominal pain, dysuria, neuro symptoms - Spoke with Dr. Renteria of surgical team. Cleared for surgery medically. Plan for surgery in afternoon today. Will follow-up with post-op plan and coordinate with surgical team. OBJECTIVE: Vital Signs Intake & Output 07/25/17 07/26/17 07/27/17 07/28/17 23:59 23:59 23:59 23:59 Intake Total 840 Balance 840 Weight 69.354 kg Period Temp Pulse Resp BP Sys/Venegas Pulse Ox Last 24 Hr 97.7 F-98.3 F 72-82 18-20 132-153/63-84 97-98 GENERAL: Awake, alert, and fully oriented, in no acute distress. Non-burkinan speaking. In good spirits. HEAD: Normal with no signs of trauma. EYES: Pupils equal, round and reactive to light, extraocular movements intact, sclera anicteric, conjunctiva clear. No lid lag. EARS, NOSE, THROAT: Ears normal, nares patent, oropharynx clear without exudates. Moist mucous membranes. NECK: Normal range of motion, supple without lymphadenopathy, JVD, or masses. LUNGS: Breath sounds equal, clear to auscultation bilaterally. No wheezes, and no crackles. No accessory muscle use. HEART: Regular rate and rhythm, normal S1 and S2 without murmur, rub or gallop. ABDOMEN: Globular, soft. Hypoactive bowel sounds. Focally tender to palpation on RUQ, much improved from yesterday. No pain on palpation of LUQ and LLQ. No splenomegaly. + Perez's. Negative for rebound tenderness. Negative fluid wave MUSCULOSKELETAL: Normal range of motion at all joints. No bony deformities or tenderness. No CVA tenderness. UPPER EXTREMITIES: 2+ pulses, warm, well-perfused. No cyanosis. No clubbing. No peripheral edema. LOWER EXTREMITIES: 2+ PT BL, 2+ DP on L side, 1+ DP on R. No calf tenderness. 1 + peripheral edema BL. NEUROLOGICAL: Cranial nerves II-XII intact. Normal speech. Gait not evaluated. PSYCHIATRIC: Cooperative. Good eye contact. Appropriate mood and affect. SKIN: Warm, dry, normal turgor, no rashes or lesions noted, normal capillary refill. Laboratory Results - last 24 hr CBC, BMP 07/28/17 06:30 07/28/17 06:30 07/27/17 07/27/17 07/27/17 12:30 12:38 12:38 WBC 10.3 H RBC 4.22 Hgb 12.3 Hct 37.4 MCV 88.7 MCH 29.2 MCHC 32.9 RDW 13.6 Plt Count 285 MPV 8.7 Neutrophils % 59.6 D Lymphocytes % 23.8 D Monocytes % 10.5 H D Eosinophils % 5.1 H D Basophils % 1.0 PT with INR INR PTT (Actin FS) Sodium 138 Potassium 5.1 D Chloride 103 Carbon Dioxide 28 Anion Gap 7 L BUN 13 Creatinine 0.8 Creat Clearance w eGFR > 60 POC Glucometer Random Glucose 109 H D Hemoglobin A1c % Calcium 8.7 Phosphorus Magnesium 2.1 Total Bilirubin 1.0 D AST 40 H D ALT 31 Alkaline Phosphatase 64 Troponin I < 0.02 Total Protein 7.5 Albumin 3.0 L D Lipase 173 Urine Color Talya Urine Appearance Slcloudy Urine pH 5.0 Ur Specific Earle 1.025 Urine Protein Negative Urine Glucose (UA) Negative Urine Ketones Negative Urine Blood 1+ H Urine Nitrite Negative Urine Bilirubin Negative Urine Urobilinogen 2.0 H Ur Leukocyte Esterase Negative Urine WBC (Auto) 6 Urine RBC (Auto) 3 Ur Epithelial Cells Few Urine Bacteria Rare Urine Mucus Many Blood Type Antibody Screen 07/27/17 07/27/17 07/27/17 16:00 16:05 17:28 WBC RBC Hgb Hct MCV MCH MCHC RDW Plt Count MPV Neutrophils % Lymphocytes % Monocytes % Eosinophils % Basophils % PT with INR 12.60 H INR 1.12 PTT (Actin FS) 29.4 Sodium 137 Potassium 3.6 D Chloride 102 Carbon Dioxide 27 Anion Gap 8 BUN 12 Creatinine 0.7 Creat Clearance w eGFR > 60 POC Glucometer Random Glucose 91 Hemoglobin A1c % Calcium 8.3 L Phosphorus Magnesium Total Bilirubin 0.7 D AST 19 D ALT 29 Alkaline Phosphatase 66 Troponin I Total Protein 7.0 Albumin 3.1 L Lipase Urine Color Urine Appearance Urine pH Ur Specific Earle Urine Protein Urine Glucose (UA) Urine Ketones Urine Blood Urine Nitrite Urine Bilirubin Urine Urobilinogen Ur Leukocyte Esterase Urine WBC (Auto) Urine RBC (Auto) Ur Epithelial Cells Urine Bacteria Urine Mucus Blood Type AB POSITIVE Antibody Screen Negative 07/27/17 07/27/17 07/28/17 17:45 17:53 06:22 WBC 9.7 RBC 4.08 Hgb 12.2 Hct 36.0 MCV 88.2 MCH 29.8 MCHC 33.8 RDW 13.5 Plt Count 277 MPV 8.7 Neutrophils % 55.5 Lymphocytes % 27.6 Monocytes % 10.6 H Eosinophils % 5.5 H Basophils % 0.8 PT with INR INR PTT (Actin FS) Sodium Potassium Chloride Carbon Dioxide Anion Gap BUN Creatinine Creat Clearance w eGFR POC Glucometer 134 Random Glucose Hemoglobin A1c % 7.3 H Calcium Phosphorus Magnesium Total Bilirubin AST ALT Alkaline Phosphatase Troponin I Total Protein Albumin Lipase Urine Color Urine Appearance Urine pH Ur Specific Earle Urine Protein Urine Glucose (UA) Urine Ketones Urine Blood Urine Nitrite Urine Bilirubin Urine Urobilinogen Ur Leukocyte Esterase Urine WBC (Auto) Urine RBC (Auto) Ur Epithelial Cells Urine Bacteria Urine Mucus Blood Type Antibody Screen 07/28/17 07/28/17 07/28/17 06:30 06:30 06:30 WBC 9.3 RBC 3.85 Hgb 11.3 Hct 33.9 MCV 87.9 MCH 29.5 MCHC 33.5 RDW 13.0 Plt Count 264 MPV 8.5 Neutrophils % 63.2 Lymphocytes % 20.7 D Monocytes % 9.4 Eosinophils % 5.8 H Basophils % 0.9 PT with INR INR PTT (Actin FS) Sodium 137 Potassium 3.7 Chloride 105 Carbon Dioxide 26 Anion Gap 6 L BUN 8 D Creatinine 0.6 Creat Clearance w eGFR > 60 POC Glucometer Random Glucose 131 H D Hemoglobin A1c % Calcium 7.6 L Phosphorus 2.3 L Magnesium 2.0 Total Bilirubin 0.5 D AST 15 D ALT 25 Alkaline Phosphatase 56 Troponin I Total Protein 6.1 L Albumin 2.7 L Lipase 168 Urine Color Urine Appearance Urine pH Ur Specific Earle Urine Protein Urine Glucose (UA) Urine Ketones Urine Blood Urine Nitrite Urine Bilirubin Urine Urobilinogen Ur Leukocyte Esterase Urine WBC (Auto) Urine RBC (Auto) Ur Epithelial Cells Urine Bacteria Urine Mucus Blood Type Antibody Screen Active Medications Generic Name Dose Route Start Last Admin Trade Name Freq PRN Reason Stop Dose Admin Heparin Sodium (Porcine) 5,000 unit 07/27/17 18:00 07/28/17 01:34 Heparin - SQ Not Given Q8H-IV FREDRICK Metronidazole 500 mg in 100 mls @ 100 mls/hr 07/27/17 18:00 07/28/17 01:32 Flagyl 500mg Premixed Ivpb - IVPB 100 mls/hr Q8H-IV FREDRICK Administration Famotidine 20 mg in 12 mls @ 144 mls/hr 07/27/17 19:01 07/28/17 00:46 Pepcid 20 Mg/12 Ml Push IVPUSH 144 mls/hr BID FREDRICK Administration Potassium Chloride 20 meq/ 1,000 mls @ 83 mls/hr 07/27/17 19:00 07/27/17 21: 47 Dextrose/Sodium Chloride IVPB 83 mls/hr ASDIR FREDRICK Administration CEFTRIAXONE 1 G/50 ML PREMIX 50 mls @ 100 mls/hr 07/28/17 08:12 Ceftriaxone 1 Gm-D5w Bag IVPB DAILY FREDRICK Morphine Sulfate 2 mg 07/27/17 17:57 Morphine Sulfate IVPUSH Q4H PRN PAIN Pending urine cx R LE duplex 07/27 - No DVT CXR 07/27 - No acute pathology RUQ U/S 07/27 - Fatty liver versus hepatocellular Multiple gallstones with a trace of pericholecystic free fluid. Bar Machine Operator reported positive Perez's sign. Correlate clinically to determine further evaluation and to rule out acute cholecystitis. Unremarkable examination ASSESSMENT/PLAN: 81 year old woman with no significant pmh presenting with persistent colicky RUQ pain, worsened by food, now found with U/S confirmed gallstones and findings consistent with cholecystitis. Going for lap cholecystectomy today. #Acute cholecystitis/biliary colic - US w/ multiple gallstones, sonographic perez's, pericholecystic fluid. - NPO this AM - Cleared for likely surgery in PM today. F/u with surgical team for post-op care. - Morphine 2mg IV q4h prn for pain control - Rocephin 1g IV daily, flagyl 500 q8h for pre-op coverage. Plan for 1x dose of unasyn post-op. - No WBC this AM 9.3 - Trend WBC, fever curve - Pt low clinical risk for lap cholecystectomy (intermediate risk), with no cardio-pulmonary comorbidities such as CHF, structural heart dz, arrhythmias, pulmonary dz, known valvular dz. Pt independent in all ADLs with no noted exercise intolerant inconsistent with her age. #LE Edema (r/o dvt) - asymmetric LE edema on R leg, decrease DP pulse - No DVT on R LE #Hyperglycemia - elevated BS 131 this am, elevated on admission - A1C 7.3 - Started on Januvia 100mg daily - Will counselor aide pt and son about obesity, diabetes management #PPX - SubQ Heparin after surgery. Currently being held - Famotidine IV BID FEN Fluids: 12d5NS 83 cc/hr Electrolytes: Daily BMPs, borderline hypoK 7.3 Nutrition: NPO Full Code Dispo: Med-surg for pre- post-op management after lap cholecystectomy. Plan discussed with attending, Dr. Jody Augustin, PGY1 Visit type - Emergency Visit Emergency Visit: Yes ED Registration Date: 07/27/17 Care time: The patient presented to the Emergency Department on the above date and was hospitalized for further evaluation of their emergent condition. - New Patient This patient is new to me today: No - Critical Care Critical Care patient: No
[2017-07-28] MEDS ORDERED: PT OWN MED DRAWER 7, Y5N ONE (10:07)
--- NOTE | 2017-07-28 10:07 | EKG ---
Test Reason : Blood Pressure : / mmHG Vent. Rate : 071 BPM Atrial Rate : 071 BPM P-R Int : 188 ms QRS Dur : 080 ms QT Int : 404 ms P-R-T Axes : 048 -02 064 degrees QTc Int : 439 ms NORMAL SINUS RHYTHM POSSIBLE INFERIOR INFARCT (CITED ON OR BEFORE 21-JUL-2017) ABNORMAL ECG WHEN COMPARED WITH ECG OF 21-JUL-2017 19:45, NO SIGNIFICANT CHANGE WAS FOUND Confirmed by GENNY BARRIOS MD ([id number]) on 07/28/2017 10:07:10 AM Referred By: Confirmed By:GENNY BARRIOS MD
--- NOTE | 2017-07-28 11:05 | PN ---
Progress Note, Physician Chief Complaint: RUQ pain History of Present Illness: Pt with no pain at this time. Feeling better. No overnight events. On Ceftriaxone and Flagyl. Son expressed some hesitancy about proceeding with surgery. Spoke with pt's granddaughter over phone and assured her that pt's risk despite her age is overall as low as it will be, given that she also had knee surgery twice in last two years and did well. Gallstones will not go away with medication, but colic could be managed with diet. Still, pain could recur, and stones could lead to ductal obstruction, cholangitis or pancreatitis in the future, which could be more severe. She spoke again with patient's son, who also spoke with patient again, and they do wish to proceed with operation today. - Current Medication List Current Medications: Active Medications Heparin Sodium (Porcine) (Heparin -) 5,000 unit SQ Q8H-IV [facility] Last Admin: 07/28/17 09:56 Dose: Not Given Metronidazole (Flagyl 500mg Premixed Ivpb -) 500 mg in 100 mls @ 100 mls/hr IVPB Q8H-IV [facility] Last Admin: 07/28/17 10:32 Dose: 100 mls/hr Famotidine (Pepcid 20 Mg/12 Ml Push) 20 mg in 12 mls @ 144 mls/hr IVPUSH BID [facility] Last Admin: 07/28/17 10:32 Dose: 144 mls/hr Potassium Chloride 20 meq/ (Dextrose/Sodium Chloride) 1,000 mls @ 83 mls/hr IVPB ASDIR [facility] Last Admin: 07/27/17 21:47 Dose: 83 mls/hr CEFTRIAXONE 1 G/50 ML PREMIX (Ceftriaxone 1 Gm-D5w Bag) 50 mls @ 100 mls/hr IVPB DAILY [facility] Last Admin: 07/28/17 09:55 Dose: 100 mls/hr Morphine Sulfate (Morphine Sulfate) 2 mg IVPUSH Q4H PRN PRN Reason: PAIN - Objective Vital Signs: Vital Signs Temperature 97.6 F 07/28/17 09:00 Pulse Rate 78 07/28/17 09:00 Respiratory Rate 18 07/28/17 09:00 Blood Pressure 118/80 07/28/17 09:00 O2 Sat by Pulse Oximetry (%) 97 07/27/17 22:35 Constitutional: Yes: Well Nourished, No Distress, Calm Eyes: Yes: Conjunctiva Clear, EOM Intact. No: Sclera Icterus Cardiovascular: Yes: Regular Rate and Rhythm. No: Murmur Respiratory: Yes: Regular, CTA Bilaterally Gastrointestinal: Yes: Normal Bowel Sounds, Soft, Abdomen, Obese (protuberant), Tenderness (mild RUQ without rebound or guarding). No: Tenderness, Epigastrium Musculoskeletal: No: Joint Stiffness, Joint Swelling Extremities: No: Cool, Cyanosis Integumentary: No: Jaundice, Rash Neurological: Yes: Alert, Oriented Psychiatric: Yes: Alert, Oriented Labs: CBC, BMP 07/28/17 06:30 07/28/17 06:30 INR, PTT INR 1.12 (0.82-1.09) 07/27/17 16:05 CMP Sodium 137 mmol/L (136-145) 07/28/17 06:30 Potassium 3.7 mmol/L (3.5-5.1) 07/28/17 06:30 Chloride 105 mmol/L (98-107) 07/28/17 06:30 Carbon Dioxide 26 mmol/L (21-32) 07/28/17 06:30 Anion Gap 6 (8-16) L 07/28/17 06:30 BUN 8 mg/dL (7-18) D 07/28/17 06:30 Creatinine 0.6 mg/dL (0.55-1.02) 07/28/17 06:30 Creat Clearance w eGFR > 60 (>60) 07/28/17 06:30 POC Glucometer 134 UNITS (80-120) 07/28/17 06:22 Random Glucose 131 mg/dL (74-106) H D 07/28/17 06:30 Hemoglobin A1c % 7.3 % (4.8-6.0) H 07/27/17 17:53 Calcium 7.6 mg/dL (8.5-10.1) L 07/28/17 06:30 Phosphorus 2.3 mg/dL (2.5-4.9) L 07/28/17 06:30 Magnesium 2.0 mg/dL (1.8-2.4) 07/28/17 06:30 Total Bilirubin 0.5 mg/dL (0.2-1.0) D 07/28/17 06:30 AST 15 U/L (15-37) D 07/28/17 06:30 ALT 25 U/L (12-78) 07/28/17 06:30 Alkaline Phosphatase 56 U/L (45-117) 07/28/17 06:30 Troponin I < 0.02 ng/ml (0.00-0.05) 07/27/17 12:38 Total Protein 6.1 g/dl (6.4-8.2) L 07/28/17 06:30 Albumin 2.7 g/dl (3.4-5.0) L 07/28/17 06:30 Lipase 168 U/L (73-393) 07/28/17 06:30 - ....Imaging Ultrasound: Report Reviewed (no evidence of DVT in right leg) EKG: Report Reviewed Problem List - Problems (1) Calculus of gallbladder with acute and chronic cholecystitis without obstruction Assessment/Plan: NPO/IVF until after surgery IV antibiotics through 1-2 doses postop GI/DVT prophylaxis plan alternating tylenol/ibuprofen prn for pain postop, narcotic for breakthrough only lap constantin today plan to resume po postop Code(s): K80.12 - CALCULUS OF GB W ACUTE AND CHRONIC CHOLECYST W/O OBSTRUCTION (2) Osteoarthritis of both knees Code(s): M17.0 - BILATERAL PRIMARY OSTEOARTHRITIS OF KNEE Qualifiers: Osteoarthritis type: primary Qualified Code(s): M17.0 - Bilateral primary osteoarthritis of knee
[2017-07-28] MEDS ORDERED: D5-1/2NS+20 MEQ KCL - 20 MEQ/1,000 ML INFUS.BAG IV SCH (13:00)
[2017-07-28] MEDS ORDERED: sitaGLIPtin PHOSPHATE 100 MG TABLET (FP) PO SCH (16:30)
[2017-07-28] MEDS ORDERED: FLU VACCINE QUAD 60 MCG/0.5 ML (MDV 17-18) IM ONE (17:00)
[2017-07-28] MEDS ORDERED: PNEUMOC 13-VAL CONJ-DIP CRM/PF 0.5 ML DISP.SYRIN IM ONE (17:00)
[2017-07-28] MEDS ORDERED: CEFOXITIN SODIUM 1 GM IVPB ONE (18:20)
[2017-07-28] MEDS ORDERED: ROCURONIUM BROMIDE 50 MG/5 ML VIAL ONE (18:22)
[2017-07-28] MEDS ORDERED: PROPOFOL 20 ML ONE (18:22)
[2017-07-28] MEDS ORDERED: cefOXitin SODIUM 1 GM VIAL (RESTRICTED TO ID) IVPB ONE (18:30)
--- NOTE | 2017-07-28 18:30 | PN ---
Teaching Attending Note Name of Resident: Torey Augustin ATTENDING PHYSICIAN STATEMENT I saw and evaluated the patient. I reviewed the resident's note and discussed the case with the resident. I agree with the resident's findings and plan as documented. SUBJECTIVE: No fever or chills. has no abd pain. denies N/V OBJECTIVE: NAD, Awake , alert and oriented HEENT: MMM CV: RRR. no MRG Lungs: CTAB Abd: soft, ND, NL BS . TTP in RUQ with positive Perez's , liver is not palpated or percussed . no rebound tenderness or guarding . Ext: no erythema. Circumference of R leg ? slightly > L . with tenderness on R browne. ASSESSMENT AND PLAN: 81 y/o lady with h/o TKA who presented with abd pain x 5 days. 1- Acute cholecystitis : - for CCY today - d/w Myra Gibbons, will nened unasyn x 2 after surgery - start celars after sx - pain cotrol after sx - N O DVT 2- Newly diagnosed DM: with A1c 7.1 sugar is not elevated here but she is NPO - will not start any regimen here - will offer a diet trail as otupt - dietitian consult - will prescribe glucometer at dc DVT PX Possible dc tomorrow
[2017-07-28] MEDS ORDERED: DEXAMETHASONE SOD PHOSPHATE 4 MG/1 ML VIAL ONE (18:52)
[2017-07-28] MEDS ORDERED: ONDANSETRON 4 MG/2 ML VIAL IVPUSH PRN ×2 (20:12→21:57)
[2017-07-28] MEDS ORDERED: BUPIVACAINE HCL/PF 0.5% (5MG/ML) 10 ML VIAL IJ ONE ×2 (20:36)
[2017-07-28] MEDS ORDERED: NEOSTIGMINE METHYLSULFATE 0.5 MG/ML - 10 ML MDV ONE (20:37)
[2017-07-28] MEDS ORDERED: PHENYLEPHRINE HCL 10 MG/1 ML SINGLE DOSE VIAL ONE (20:37)
[2017-07-28] MEDS ORDERED: GLYCOPYRROLATE 0.2 MG/1 ML VIAL ONE (20:38)
[2017-07-28] MEDS ORDERED: HYDROmorphone HCL CARPU-JECT 2 MG/1 ML DISP.SYRIN ONE (20:58)
[2017-07-28] MEDS ORDERED: AMPICILLIN NA/SULBACTAM NA 1.5 GM in SODIUM CHLORIDE 100 ML IVPB SCH (21:00)
[2017-07-28] MEDS: HYDROmorphone HCL CARPU-JECT 1 MG/1 ML DISP.SYRIN IVPUSH PRN ×4 (21:00→21:20)
[2017-07-28] MEDS ORDERED: ACETAMINOPHEN 325 MG TABLET (FP) PO PRN ×2 (21:35→21:57)
[2017-07-28] MEDS ORDERED: IBUPROFEN 600 MG TABLET (FP) PO PRN ×2 (21:36→21:57)
[2017-07-28] MEDS ORDERED: oxyCODONE HCL 5 MG TABLET PO PRN ×2 (21:36→21:57)
[2017-07-28] MEDS ORDERED: morphine SULFATE 4 MG/ML VIAL IVPUSH PRN ×2 (21:38→21:57)
--- NOTE | 2017-07-28 21:53 | OP ---
Operative Note - Note: Operative Date: 07/28/17 Pre-Operative Diagnosis: acute and chronic cholecystitis Operation: laparoscopic cholecystectomy Findings: chronically inflamed gallbladder, decompressed of 40ml+ of bile, with adherent omentum overlying; critical view identified; some bile spillage irrigated and suctioned, gb entered toward dome with several yellow stones spilled and retrieved; uppermost portion of back wall adherent to liver and left behind, mucosa cauterized thoroughly Post-Operative Diagnosis: Same as Pre-op Surgeon: Altaf Renteria Mercerizer Machine Operator: Kevyn Millan Anesthesiologist/ASSISTANT HEAD CASHIER: Tino Hunter Anesthesia: General, Local (20ml 0.5% marcaine) Specimens Removed: gallbladder to pathology Estimated Blood Loss (mls): 25 Fluid Volume Replaced (mls): 800 (crystalloid) Operative Report Dictated: Yes
[2017-07-28] MEDS ORDERED: LACTATED RINGERS SOLUTION 1,000 ML/1,000 ML INFUS.BAG IV SCH (22:00)
[2017-07-29] MEDS ORDERED: cefOXitin SODIUM 2 GM VIAL (RESTRICTED TO ID) IVPB ONE (00:30)
[2017-07-29] MEDS ORDERED: CEFOXITIN SODIUM 1 GM PUSH 1 GM/10 ML DISP.SYRIN IVPUSH ONE (00:30)
[2017-07-29] MEDS: HEPARIN NA (PORCINE) 5,000 UNITS/ML 1ML VIAL SQ SCH (06:18)
[2017-07-29 07:37] LABS: MCH 29.2 pg (25.7-33.7); MCHC 32.6 g/dl (32.0-36.0); MEAN CELL VOLUME 89.7 fl (80-96); MEAN PLT VOLUME 8.7 fl (7.5-11.1); PLATELET COUNT 285 K/MM3 (134-434); RDW 13.3 % (11.6-15.6); WHITE BLOOD COUNT 13.4 K/mm3 (4.0-10.0)
[2017-07-29 07:46] LABS: ALBUMIN 2.7 g/dl (3.4-5.0); ANION GAP 6 (8-16); CALCIUM 8.1 mg/dL (8.5-10.1); CO2 27 mmol/L (21-32); CREATININE 0.8 mg/dL (0.55-1.02); GLUCOSE,RANDOM 140 mg/dL (74-106); SGOT/AST 63 U/L (15-37); SGPT/ALT 42 U/L (12-78)
[2017-07-29 07:48] LABS: ALK PHOS 59 U/L (45-117); BILIRUBIN,TOTAL 0.6 mg/dL (0.2-1.0); TOT PROT 6.6 g/dl (6.4-8.2)
--- NOTE | 2017-07-29 09:08 | PN ---
Progress Note (short form) - Note Progress Note: Anesthesia Post op Pt seen and examined S:awake and alert O: Vital Signs Temperature 97.4 F L 07/29/17 06:00 Pulse Rate 62 07/29/17 06:00 Respiratory Rate 16 07/29/17 06:00 Blood Pressure 133/61 07/29/17 06:00 O2 Sat by Pulse Oximetry (%) 97 07/28/17 22:35 CBC, BMP 07/29/17 06:00 07/29/17 06:00 A/P:s/p isael killian Doing well post op Continue current care Bo Gonzales MD
[2017-07-29] MEDS ORDERED: PT OWN MED DRAWER 7, Y5N ONE (09:14)
[2017-07-29] MEDS: FAMOTIDINE IV 20 MG/12 ML VIAL IVPUSH SCH (09:17)
--- NOTE | 2017-07-29 09:34 | PN ---
Physical Exam: SUBJECTIVE: Patient seen and examined by this AM - Grandson at bedside, able to translate. Counseled about post-op plan, need to lose weight and new diagnosis of diabetes, along with dietary modifications and new meds - no major overnight events. No complaints. Good appetite. 1 BM, no blood, color changes overnight. - Denies fever/chills, sob, cough, n/v, abdominal pain, rashes, samaniego/ lightheadness. - Going home today OBJECTIVE: Vital Signs Intake & Output 07/26/17 07/27/17 07/28/17 07/29/17 23:59 23:59 23:59 23:59 Intake Total 2802 1200 Output Total 25 Balance 2777 1200 Weight 69.354 kg Period Temp Pulse Resp BP Sys/Venegas Pulse Ox Last 24 Hr 97.3 F-98.7 F 62-90 14-22 98-164/57-76 94-100 GENERAL: Awake, alert, and fully oriented, in NAD HEAD: Normal with no signs of trauma. EYES: Pupils equal, round and reactive to light, extraocular movements intact, sclera anicteric, conjunctiva clear. No lid lag. EARS, NOSE, THROAT: Ears normal, nares patent, oropharynx clear without exudates. Moist mucous membranes. LUNGS: Breath sounds equal, clear to auscultation bilaterally. No wheezes, and no crackles. No accessory muscle use. HEART: Regular rate and rhythm, normal S1 and S2 without murmur, rub or gallop. ABDOMEN: Surgical bandages noted on 4 sites on abdomen, no erythema or drainage. Globular, soft. + bowel sounds. No pain on palpation in all 4 quads. No splenomegaly. Negative for rebound tenderness. MUSCULOSKELETAL: Normal range of motion at all joints. No bony deformities or tenderness. No CVA tenderness. UPPER EXTREMITIES: 2+ pulses, warm, well-perfused. No cyanosis. No clubbing. No peripheral edema. LOWER EXTREMITIES: 2+ PT BL, 2+ DP on L side, 1+ DP on R. No calf tenderness. 1 + peripheral edema BL. NEUROLOGICAL: Cranial nerves II-XII intact. Normal speech. Gait not evaluated. PSYCHIATRIC: Cooperative. Good eye contact. Appropriate mood and affect. Laboratory Results - last 24 hr CBC, BMP 07/29/17 06:00 07/29/17 06:00 1207/28/17 07/29/17 11:35 16:34 06:00 WBC 13.4 H D RBC 3.88 Hgb 11.3 Hct 34.8 MCV 89.7 MCH 29.2 MCHC 32.6 RDW 13.3 Plt Count 285 MPV 8.7 Sodium Potassium Chloride Carbon Dioxide Anion Gap BUN Creatinine Creat Clearance w eGFR POC Glucometer 102 101 Random Glucose Calcium Total Bilirubin AST ALT Alkaline Phosphatase Total Protein Albumin 07/29/17 07/29/17 06:00 06:21 WBC RBC Hgb Hct MCV MCH MCHC RDW Plt Count MPV Sodium 138 Potassium 4.4 Chloride 105 Carbon Dioxide 27 Anion Gap 6 L BUN 9 Creatinine 0.8 D Creat Clearance w eGFR > 60 POC Glucometer 140 Random Glucose 140 H Calcium 8.1 L Total Bilirubin 0.6 AST 63 H D ALT 42 D Alkaline Phosphatase 59 Total Protein 6.6 Albumin 2.7 L Active Medications Generic Name Dose Route Start Last Admin Trade Name Freq PRN Reason Stop Dose Admin Acetaminophen 650 mg 07/28/17 21:57 Tylenol - PO Q6H PRN PAIN Heparin Sodium (Porcine) 5,000 unit 07/28/17 22:15 07/29/17 06:18 Heparin - SQ 5,000 unit TID FREDRICK Administration Famotidine 20 mg in 12 mls @ 144 mls/hr 07/28/17 22:00 07/29/17 09:17 Pepcid 20 Mg/12 Ml Push IVPUSH 144 mls/hr BID FREDRICK Administration Lactated Ringer's 1,000 ml in 1,000 mls @ 83 mls/hr 07/28/17 22:00 07/28/17 22:46 Lactated Ringers Solution IV 83 mls/hr ASDIR FREDRICK Administration Ibuprofen 600 mg 07/28/17 21:57 07/29/17 06:18 Motrin - PO 600 mg Q6H PRN Administration PAIN Morphine Sulfate 2 mg 07/28/17 21:57 Morphine Sulfate IVPUSH Q3H PRN SEVERE PAIN Ondansetron HCl 4 mg 07/28/17 21:57 Zofran Injection IVPUSH Q6H PRN NAUSEA AND/OR VOMITING Oxycodone HCl 5 mg 07/28/17 21:57 Roxicodone - PO Q4H PRN SEVERE PAIN Pending urine cx R LE duplex 07/27 - No DVT CXR 07/27 - No acute pathology RUQ U/S 07/27 - Fatty liver versus hepatocellular Multiple gallstones with a trace of pericholecystic free fluid. Linux Administrator reported positive Perez's sign. Correlate clinically to determine further evaluation and to rule out acute cholecystitis. Unremarkable examination ASSESSMENT/PLAN: 81 year old woman with no significant pmh presenting with persistent colicky RUQ pain, worsened by food, now found with U/S confirmed gallstones and findings consistent with cholecystitis. Now S/p CCY, doing well, afebrile, tolerating feeds w/ one BM overnight. Cleared for d/c today. #Acute cholecystitis/biliary colic - US w/ multiple gallstones, sonographic perez's, pericholecystic fluid. - s/p CCY - Pain control w/ Motrin/tylenol - Received one dose unasyn post-op - Will f/u with surgery as outpt w/ Dr. Renteria #Hyperglycemia - BS well-controlled now. - A1C 7.3 - D/c errol - Counseled pt about obesity, diabetes management. Provided instructions for diet, blood glucose monitoring at home. - Will f/u on further management with PCP - Provided rx for glucometer, test strips, lancets Full Code Dispo: Home today w/ f/u outpt surgery w/ Dr. Renteria. Plan discussed with attending, Dr. Jody Augustin, PGY1 Visit type - Emergency Visit Emergency Visit: Yes ED Registration Date: 07/27/17 Care time: The patient presented to the Emergency Department on the above date and was hospitalized for further evaluation of their emergent condition. - New Patient This patient is new to me today: No - Critical Care Critical Care patient: No
[2017-07-29 10:28] VITALS: TEMP 97.9
--- NOTE | 2017-07-29 12:49 | PN ---
Progress Note, Physician Chief Complaint: RUQ pain History of Present Illness: s/p lap constantin, feeling well tolerating diet ambulated all the way down joseph, voided denies pain no nausea or fevers - Current Medication List Current Medications: Active Medications Acetaminophen (Tylenol -) 650 mg PO Q6H PRN PRN Reason: PAIN Heparin Sodium (Porcine) (Heparin -) 5,000 unit SQ TID [facility] Last Admin: 07/29/17 06:18 Dose: 5,000 unit Famotidine (Pepcid 20 Mg/12 Ml Push) 20 mg in 12 mls @ 144 mls/hr IVPUSH BID [facility] Last Admin: 07/29/17 09:17 Dose: 144 mls/hr Lactated Ringer's (Lactated Ringers Solution) 1,000 ml in 1,000 mls @ 83 mls/ hr IV ASDIR [facility] Last Admin: 07/28/17 22:46 Dose: 83 mls/hr Ibuprofen (Motrin -) 600 mg PO Q6H PRN PRN Reason: PAIN Last Admin: 07/29/17 06:18 Dose: 600 mg Morphine Sulfate (Morphine Sulfate) 2 mg IVPUSH Q3H PRN PRN Reason: SEVERE PAIN Ondansetron HCl (Zofran Injection) 4 mg IVPUSH Q6H PRN PRN Reason: NAUSEA AND/OR VOMITING Oxycodone HCl (Roxicodone -) 5 mg PO Q4H PRN PRN Reason: SEVERE PAIN - Objective Vital Signs: Vital Signs Temperature 97.9 F 07/29/17 10:00 Pulse Rate 81 07/29/17 10:00 Respiratory Rate 18 07/29/17 10:00 Blood Pressure 137/71 07/29/17 10:00 O2 Sat by Pulse Oximetry (%) 98 07/29/17 10:00 Constitutional: Yes: Well Nourished, No Distress, Calm Eyes: Yes: Conjunctiva Clear, EOM Intact. No: Sclera Icterus Cardiovascular: Yes: Regular Rate and Rhythm. No: Murmur Respiratory: Yes: Regular, CTA Bilaterally Gastrointestinal: Yes: Normal Bowel Sounds, Soft, Abdomen, Obese (protuberant), Distention (minimal), Tenderness (minimal incisional and RUQ only) Extremities: No: Cool, Cyanosis Integumentary: Yes: Incision (x4 dressed). No: Jaundice, Rash Wound/Incision: Yes: Steri Strips (under dressings), Dressing Dry and Intact (x4 ). No: Dressing Removed Neurological: Yes: Alert, Oriented Psychiatric: Yes: Alert, Oriented Labs: CBC, BMP 07/29/17 06:00 07/29/17 06:00 CMP Sodium 138 mmol/L (136-145) 07/29/17 06:00 Potassium 4.4 mmol/L (3.5-5.1) 07/29/17 06:00 Chloride 105 mmol/L (98-107) 07/29/17 06:00 Carbon Dioxide 27 mmol/L (21-32) 07/29/17 06:00 Anion Gap 6 (8-16) L 07/29/17 06:00 BUN 9 mg/dL (7-18) 07/29/17 06:00 Creatinine 0.8 mg/dL (0.55-1.02) D 07/29/17 06:00 Creat Clearance w eGFR > 60 (>60) 07/29/17 06:00 POC Glucometer 132 UNITS (80-120) 07/29/17 11:17 Random Glucose 140 mg/dL (74-106) H 07/29/17 06:00 Hemoglobin A1c % 7.3 % (4.8-6.0) H 07/27/17 17:53 Calcium 8.1 mg/dL (8.5-10.1) L 07/29/17 06:00 Phosphorus 2.3 mg/dL (2.5-4.9) L 07/28/17 06:30 Magnesium 2.0 mg/dL (1.8-2.4) 07/28/17 06:30 Total Bilirubin 0.6 mg/dL (0.2-1.0) 07/29/17 06:00 AST 63 U/L (15-37) H D 07/29/17 06:00 ALT 42 U/L (12-78) D 07/29/17 06:00 Alkaline Phosphatase 59 U/L (45-117) 07/29/17 06:00 Troponin I < 0.02 ng/ml (0.00-0.05) 07/27/17 12:38 Total Protein 6.6 g/dl (6.4-8.2) 07/29/17 06:00 Albumin 2.7 g/dl (3.4-5.0) L 07/29/17 06:00 Lipase 168 U/L (73-393) 07/28/17 06:30 Problem List - Problems (1) Calculus of gallbladder with acute and chronic cholecystitis without obstruction Assessment/Plan: POD1 s/p laparoscopic cholecystectomy doing very well ambulating, voiding, tolerating soft diet, no pain meds yet this am and feeling well minimal incisional pain ok for d/c home with alternating tylenol and ibuprofen prn for pain no narcotic Rx pt to f/u with me in 2 weeks instructions in d/c plan spoke with krysta Neville at bedside, who understands and agrees with plan Code(s): K80.12 - CALCULUS OF GB W ACUTE AND CHRONIC CHOLECYST W/O OBSTRUCTION (2) Osteoarthritis of both knees Code(s): M17.0 - BILATERAL PRIMARY OSTEOARTHRITIS OF KNEE Qualifiers: Osteoarthritis type: primary Qualified Code(s): M17.0 - Bilateral primary osteoarthritis of knee
--- NOTE | 2017-07-29 14:25 | PN ---
Teaching Attending Note Name of Resident: Torey Augustin ATTENDING PHYSICIAN STATEMENT I saw and evaluated the patient. I reviewed the resident's note and discussed the case with the resident. I agree with the resident's findings and plan as documented. SUBJECTIVE: no fever or chills, has no abd pain OBJ: NAD, Awake , alert and oriented HEENT: MMM CV: RRR. no MRG Lungs: CTAB Abd: soft, ND, NL BS . no TTP Ext: no erythema. ASSESSMENT AND PLAN: 81 y/o lady with h/o TKA who presented with abd pain x 5 days. 1- cholecystitis , likely chronic : doing well , tolerated diet - s/p CCY. - pain control with tylenol and NSAIDS - f/u with sx 2- Newly diagnosed DM: with A1c 7.1 sugar is not elevated here but she is NPO - will not start any regimen here - diet trail as otupt - will prescribe glucometer - log to be taken to PCP , for possible need for oral agents DC home
[2017-07-29 15:26] VITALS: BP 120/59; PULSE 75
--- NOTE | 2017-07-29 21:06 | DS ---
Physical Exam: SUBJECTIVE: Patient seen and examined - Grandson at bedside, able to translate. Counseled about post-op plan, need to lose weight and new diagnosis of diabetes, along with dietary modifications and new meds - no major overnight events. No complaints. Good appetite. 1 BM, no blood, color changes overnight. - Denies fever/chills, sob, cough, n/v, abdominal pain, rashes, samaniego/ lightheadness. - Going home today OBJECTIVE: Vital Signs Period Temp Pulse Resp BP Sys/Venegas Pulse Ox Last 24 Hr 97.4 F-98.6 F 62-90 14-22 98-163/57-76 94-100 PHYSICAL EXAM GENERAL: Awake, alert, and fully oriented, in NAD HEAD: Normal with no signs of trauma. EYES: Pupils equal, round and reactive to light, extraocular movements intact, sclera anicteric, conjunctiva clear. No lid lag. EARS, NOSE, THROAT: Ears normal, nares patent, oropharynx clear without exudates. Moist mucous membranes. LUNGS: Breath sounds equal, clear to auscultation bilaterally. No wheezes, and no crackles. No accessory muscle use. HEART: Regular rate and rhythm, normal S1 and S2 without murmur, rub or gallop. ABDOMEN: Surgical bandages noted on 4 sites on abdomen, no erythema or drainage. Globular, soft. + bowel sounds. No pain on palpation in all 4 quads. No splenomegaly. Negative for rebound tenderness. MUSCULOSKELETAL: Normal range of motion at all joints. No bony deformities or tenderness. No CVA tenderness. UPPER EXTREMITIES: 2+ pulses, warm, well-perfused. No cyanosis. No clubbing. No peripheral edema. LOWER EXTREMITIES: 2+ PT BL, 2+ DP on L side, 1+ DP on R. No calf tenderness. 1 + peripheral edema BL. NEUROLOGICAL: Cranial nerves II-XII intact. Normal speech. Gait not evaluated. PSYCHIATRIC: Cooperative. Good eye contact. Appropriate mood and affect. LABS Laboratory Results - last 24 hr 07/29/17 07/29/17 07/29/17 06:00 06:00 06:21 WBC 13.4 H D RBC 3.88 Hgb 11.3 Hct 34.8 MCV 89.7 MCH 29.2 MCHC 32.6 RDW 13.3 Plt Count 285 MPV 8.7 Sodium 138 Potassium 4.4 Chloride 105 Carbon Dioxide 27 Anion Gap 6 L BUN 9 Creatinine 0.8 D Creat Clearance w eGFR > 60 POC Glucometer 140 Random Glucose 140 H Calcium 8.1 L Total Bilirubin 0.6 AST 63 H D ALT 42 D Alkaline Phosphatase 59 Total Protein 6.6 Albumin 2.7 L 07/29/17 11:17 WBC RBC Hgb Hct MCV MCH MCHC RDW Plt Count MPV Sodium Potassium Chloride Carbon Dioxide Anion Gap BUN Creatinine Creat Clearance w eGFR POC Glucometer 132 Random Glucose Calcium Total Bilirubin AST ALT Alkaline Phosphatase Total Protein Albumin HOSPITAL COURSE: Date of Admission:07/27/17 Date of Discharge: 07/29/17 81 year old woman with no significant pmh presenting with persistent colicky RUQ pain, worsened by food, received RUQ U/S notable for multiple gallstones and pericholecystic fluid. Imaging findings consistent with acute cholecystitis and clinical picture of increasing persistence of pain during 48 hours prior to admission. No other lab abnormalities on admission, normal LFTs/lipase/wbc count , afebrile. Surgery was consulted and pt was medically cleared for lap CCY on evening of 07/28. Operative report notable for chronically inflammed gallbladder , resected, with no ursula-operative or post-operative complications. S/p CCY, pt was doing well, afebrile, tolerating soft feeds w/ one BM overnight. She was cleared for outpt f/u with surgeon, Dr. Renteria, in two weeks, with d/c plan as below. Of note, pt A1C 7.3 during admission. Counseled on diabetes diagnosis, dieting and need to lose weight. Provided with rx for home glucometer and plan for f/u with PCP for further monitoring and management. Micro: Microbiology 07/27/17 12:30 Urine - Urine Clean Catch Urine Culture - Final NO GROWTH OBTAINED Imaging: R LE duplex 07/27 - No DVT CXR 07/27 - No acute pathology RUQ U/S 07/27 - Fatty liver versus hepatocellular Multiple gallstones with a trace of pericholecystic free fluid. [employer] Fireman reported positive Perez's sign. Correlate clinically to determine further evaluation and to rule out acute cholecystitis. Unremarkable examination Consults: Surgery - Dr. Renteria Operative report 07/28 - chronically inflamed gallbladder, decompressed of 40ml+ of bile, with adherent omentum overlying; critical view identified; some bile spillage irrigated and suctioned, gb entered toward dome with several yellow stones spilled and retrieved; uppermost portion of back wall adherent to liver and left behind, mucosa cauterized thoroughly Discharge plan per surgical team - ok for d/c home with alternating tylenol and ibuprofen prn for pain no narcotic Rx pt to f/u with me in 2 weeks instructions in d/c plan Patient cleared for discharge after Lap Cholecystectomy 12/ PM by Dr. Renteria. Has been afebrile, tolerating soft diet with one normal bowel movement overnight post-op. No other complaints, pain well-controlled and hemodynamically stable. Discharged with follow-up with Dr. Renteria as outpt in two weeks and follow-up with PCP provider regarding glucose monitoring and diet plan for elevated A1C during admission (Hgb A1C 7.3). Minutes to complete discharge: 35 Discharge Summary Reason For Visit: ACUTE CHOLECYSTITIS Condition: Good - Instructions Diet, Activity, Other Instructions: Postoperative instructions: You had a laparoscopic cholecystectomy on 07/28/[address] Altaf Renteria of [facility]. Activity: Resume your usual activities gradually, but no heavy exertion or lifting more than 10-15 pounds for 1 month. Remove dressings 48 hours after surgery; sticky tapes underneath will fall off by themselves. You may shower daily starting then, just pat the incision areas dry. No bath until skin incisions are completely healed. Eat lightly at first, but advance to your usual diet as tolerated. Pain: For pain, you may use and alternate Tylenol (acetaminophen) 1-2 tablets and/or ibuprofen (200-600 mg) every 6 hours each as needed; this means that you can take one OR the other at 3-hour intervals. Do not take more than 3000mg of acetaminophen in a day. Take medications as prescribed or indicated on the labeling. Follow-up: Call Dr. Renteria's office at [phone] to make your postop appointment (Monday ~2 weeks after surgery). Clinic is held in the [facility] on the first floor of [facility]. Call the office if you have: * increasing pain not responsive to pain medication * fever of 101F or higher * vomiting * unusual or increasing bleeding or drainage from wounds * increasing redness or swelling at wound sites * inability to urinate Also, see your primary medical doctor (Dr. Meehan) within 1-2 weeks. During your admission, your lab studies were remarkable for an elevated A1C (7.3 ), a marker of chronically elevated blood sugar. According to these results, you meet the criteria for diabetes and will require home blood glucose monitoring and dietary modification. Please follow-up with your primary care provider regarding the need for intermediate medication for blood sugar control. Included in this discharge packet are prescriptions for a home glucometer for measuring blood sugar, as well as lancet and blood glucose strips for taking blood samples. - Listed below are sample instructions for home to use your home glucometer: What You Need to Use a Glucometer Alcohol prep pad (or soap and water if you have access to a sink) Lancet Test strip Glucometer A notebook to record results Here's How to Use a Glucometer First, set out your glucometer, a test strip, a lancet and an alcohol prep pad. Wash your hands to prevent infection.If you are not by a sink, it is okay to just use the alcohol swab and vice versa. If you are by a sink and wash your hands thoroughly, you do not have to use an alcohol swab. Decide where you are going to obtain the blood from the standard choice is from a finger. Some monitors let you use, alternative site testing, such as your forearm or another less sensitive place. Before you use an alternate site, discuss this with your doctor and check the instructions for your glucometer. Sometimes it helps to warm your hands first to make the blood flow easier. You can rub your hands together briskly or run them under warm water. If you run them under hot water, be sure to dry them well as wet hands can dilute the blood sample, resulting in a lower number. Turn on the glucometer and place a test strip in the machine when the machine is ready. Watch the indicator for placing the blood on the strip. Make sure your hand is dry and wipe the area you've selected with an alcohol prep pad and wait until the alcohol evaporates. Bryant your fingertip on the side of your finger, between the bottom of your fingernail to the tip of your nail (avoid the pads as this can pinch more) . The type of drop of blood is determined by the type of strip you are using ( some use a "hanging drop" of blood versus a small drop for strips that draw blood in with a capillary action). Place the drop of blood on or at the side of the strip. The glucometer will take a few moments to calculate the blood sugar reading. Follow your doctor's orders for whatever blood sugar reading you get. You may use the alcohol prep pad to blot the site where you mainor the blood if it is still bleeding. Write down your results. Keeping a record makes it easier for you and your doctor to establish a good treatment plan. Some glucometers can store your results in a memory, for easier record keeping. Diet- If you have diabetes, your body cannot make or properly use insulin. This leads to high blood glucose, or blood sugar, levels. Healthy eating helps keep your blood sugar in your target range. It is a critical part of managing your diabetes, because controlling your blood sugar can prevent the complications of diabetes. A registered dietitian can help make an eating plan just for you. It should take into account your weight, medicines, lifestyle, and other health problems you have. Healthy diabetic eating includes Limiting foods that are high in sugar Eating smaller portions, spread out over the day Being careful about when and how many carbohydrates you eat Eating a variety of whole-grain foods, fruits and vegetables every day Eating less fat Limiting your use of alcohol Using less salt NIH: National [place] of Diabetes and Digestive and Kidney Diseases your primary care doctor will see your sugars and will decide whether you need to start on diabetes medications or not Referrals: Jesús Meehan MD [Primary Care Provider] - 1 Week Altaf Renteria MD [Staff Physician] - 2 Weeks Disposition: HOME - Home Medications Comprehensive Discharge Medication List: Ambulatory Orders Acetaminophen [Tylenol] 650 mg PO Q6H PRN #1 tablet 07/29/17 Ibuprofen [Advil -] 400 mg PO TID PRN #1 tablet 07/29/17 Lancets/Blood Glucose Strips [Fora [id number] [facility]] 1 each MC ASDIR # 1 combo..pkg 07/29/17 Miscellaneous Medical Supply [Glucometer Device] 1 each SQ ASDIR #1 kit Problem List - Problems (1) Acute cholecystitis Code(s): K81.0 - ACUTE CHOLECYSTITIS (2) Calculus of gallbladder with acute and chronic cholecystitis without obstruction Code(s): K80.12 - CALCULUS OF GB W ACUTE AND CHRONIC CHOLECYST W/O OBSTRUCTION (3) Diabetes mellitus Code(s): E11.9 - TYPE 2 DIABETES MELLITUS WITHOUT COMPLICATIONS This patient is new to me today: No Emergency Visit: Yes ED Registration Date: 07/27/17 Care time: The patient presented to the Emergency Department on the above date and was hospitalized for further evaluation of their emergent condition. Critical Care patient: No - Discharge Referral Referred to [facility] Med P.C.: No
== END 2017-07-29 15:36 | disposition home or self-care (01) | DRG 419 ==
LOC: JER 10:50 → JERBED 15:32 → J7W 21:23
PROVIDERS: ADMIT Internal Medicine; ATTEND Internal Medicine
PROC: 0FT44ZZ Resection of Gallbladder, Percutaneous Endoscopic Approach (ICD-10-PCS; principal; 2017-07-28 12:30)
DX: K80.12 Calculus of gallbladder with acute and chronic cholecystitis without obstruction (principal); E11.9 Type 2 diabetes mellitus without complications; M17.0 Bilateral primary osteoarthritis of knee
CPT/HCPCS: 36415; 71020-TC; 76705-TC; 80053; 81003; 81015; 83036; 83690; 83735; 84100; 84484; 85025; 85027; 85610; 85730; 86850; 86900; 86901; 87086; 93005; 93010; 93971-TC; 99283-25; J1644